=== PATIENT | female | born 1950 | race Caucasian/White ===

== ENCOUNTER 2017-06-22 13:38 | Emergency (ER) | payer BC, OTHER ==
[2017-06-22] MEDS ORDERED: CYCLOBENZAPRINE 10 MG TABLET PO STA (14:19)
[2017-06-22] MEDS ORDERED: LIDOCAINE PATCH 5% TOP STA (14:19)
[2017-06-22] MEDS ORDERED: KETOROLAC 60 MG/2 ML VIAL IM STA (14:19)
--- NOTE | 2017-06-22 14:23 | ED Physician Documentation ---
History of Present Illness - Stated complaint Stated Complaint: NECK/SHOULDER PX - Chief complaint Chief Complaint: General - Additonal information Additional information: hx from pt 66 female worsening left sided neck and posterior shoulder pain for several days not better with NSAID and OTC slovak med no trauma no CP SOA fever cough abd pain hurts to move Review of Systems Constitutional: denies: Fever Cardiac: denies: Chest pain / pressure Respiratory: denies: Dyspnea, Cough GI: denies: Abdominal Pain, Nausea, Vomiting Musculoskeletal: reports: Neck pain, Extremity pain Endocrine: denies: Easy bruising / bleeding Immunocompromised: denies: Immunocompromised PD PAST MEDICAL HISTORY - Past Medical History Cardiovascular: Hypertension Respiratory: Sleep apnea Endocrine/Autoimmune: HyPOthyroidism GI: GERD, Hemorrhoids : None HEENT: None Psych: None Musculoskeletal: Osteoarthritis Derm: None - Past Surgical History Past Surgical History: Yes General: Colonoscopy 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: 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 - Present Medications Home Medications: Ambulatory Orders Medication Instructions Recorded Confirmed Levothyroxine [Synthroid] 20 mcg PO DAILY 01/25/13 06/22/17 Telmisartan [Micardis] 40 mg PO DAILY 01/25/13 06/22/17 EPINEPHrine [Epipen] 0.3 mg IM ONCE #1 syringe 10/31/14 06/22/17 Cyclobenzaprine [Flexeril] 10 mg PO TID PRN #20 tablet 06/22/17 Ibuprofen [Motrin] 400 mg PO Q6H PRN #30 tablet 06/22/17 Lidocaine Patch 5% [Lidoderm Patch] 1 each TOP DAILY PRN #10 patch 06/22/17 - Allergies Allergies/Adverse Reactions: Allergies Allergy/AdvReac Type Severity Reaction Status Date / Time codeine [Codeine] Allergy Severe unknown Verified 06/22/17 13:53 iodine Allergy Severe unknown Verified 06/22/17 13:53 - Social History Does the pt smoke?: No Smoking Status: Never smoker Does the pt drink ETOH?: No Does the pt have substance abuse?: No - Immunizations Immunizations are current?: Yes - POLST Patient has POLST: No PD ED PE NORMAL - Vitals Vital signs reviewed: Yes - General General: Alert and oriented X 3 - Neck Neck: No bony TTP (no focal bony TTP redness and swelling), Other (left sided soft tissue TTP) - Cardiac Cardiac: RRR - Respiratory Respiratory: No respiratory distress, Clear bilaterally - Abdomen Abdomen: Soft, Non tender - Derm Derm: Normal color - Extremities Extremities: Other (TTP across L trap and deltoid region, no swelling redness warmth etc, limited sholder ROM yandel ABD 2/2 pain, MSV intact) - Neuro Neuro: Alert and oriented X 3, No motor deficit, No sensory deficit Results - Vitals Vitals: Vital Signs - 24 hr 06/22/17 06/22/17 13:51 15:08 Temperature 36.6 C Heart Rate 75 61 Respiratory 18 14 Rate Blood Pressure 137/78 H 131/76 H O2 Saturation 99 97 Oxygen O2 Source Room air - EKG (time done) 1405 Rate: Rate (enter#) (64) Rhythm: NSR [place]: LAD Intervals: Normal [place] QRS: Normal Ischemia: Non specific changes PD MEDICAL DECISION MAKING - ED course ED course: pain seems clearly muscular better with lido paytch motrin flexeril Departure - Departure Disposition: 01 Home, Self Care Clinical Impression: Muscle spasm of back, Neck muscle spasm Condition: Good Instructions: ED Spasm Neck No Injury Follow-Up: Savannah Carter PA-C [Primary Care Provider] - Prescriptions: Cyclobenzaprine [Flexeril] 10 mg PO TID PRN #20 tablet PRN Reason: Spasms Ibuprofen [Motrin] 400 mg PO Q6H PRN #30 tablet PRN Reason: Pain Lidocaine Patch 5% [Lidoderm Patch] 1 each TOP DAILY PRN #10 patch PRN Reason: Pain Comments: Heat and ice will help too Forms: Activity restrictions
[2017-06-22] MEDS ORDERED: KETOROLAC 60 MG/2 ML VIAL ONE (14:29)
[2017-06-22] MEDS ORDERED: LIDOCAINE PATCH 5% TOP ONE (14:29)
[2017-06-22] MEDS ORDERED: CYCLOBENZAPRINE 10 MG TABLET PO ONE (14:29)
[2017-06-22 15:09] VITALS: BP 131/76
== END 2017-06-22 16:22 | disposition home or self-care (01) ==
LOC: ED 13:38
DX: M62.830 Muscle spasm of back (principal); M62.838 Other muscle spasm; I10 Essential (primary) hypertension; E03.9 Hypothyroidism, unspecified
CPT/HCPCS: 93005; 96372; 99283; A9270

== ENCOUNTER 2017-06-23 16:42 | Outpatient (CLI) | payer BC ==
--- NOTE | 2017-06-24 11:08 | XRAY Report ---
CERVICAL SPINE: 06/23/2017 COMPARISON: Cervical spine CT 01/25/2013. INDICATION: Arthritis. TECHNIQUE: Three views of the cervical spine. FINDINGS: No disk space narrowing. No vertebral body osteophytes. There are multilevel osteophytes of the facets. No evidence of acute fracture. No prevertebral soft tissue swelling. The lateral masses appear symmetric. IMPRESSION: [id number] FACET ARTHROSIS. JOB #: [id number] EXT JOB #: [id number] [facility]
== END 2017-06-23 16:43 | disposition home or self-care (01) ==
LOC: DI 16:42
PROVIDERS: ATTEND Family Medicine
DX: M47.892 Other spondylosis, cervical region (principal)
CPT/HCPCS: 72040

== ENCOUNTER 2017-08-11 06:09 | Outpatient (CLI) | payer BC ==
[2017-08-11 06:52] LABS: BASOPHILS % (AUTO) 0.5 %; EOSINOPHILS # (AUTO) 0.2 10^3/uL (0.0-0.7); EOSINOPHILS % (AUTO) 4.1 %; HGB - HEMOGLOBIN 13.5 g/dL (12.0-16.0); LYMPHOCYTES # (AUTO) 1.7 10^3/uL (1.5-3.5); LYMPHOCYTES % (AUTO) 33.2 %; MEAN CORPUSCULAR HEMOGLOBIN 30.9 pg (27.0-31.0); MEAN CORPUSCULAR HGB CONC 33.6 g/dL (32.0-36.0); MEAN PLATELET VOLUME 8.3 fL (7.9-10.8); MONOCYTES # (AUTO) 0.5 10^3/uL (0.0-1.0); MONOCYTES % (AUTO) 9.4 %; NEUTROPHILS # (AUTO) 2.7 10^3/uL (1.5-6.6); NEUTROPHILS % (AUTO) 52.8 %; PLT - PLATELET COUNT 286 10^3/uL (130-450); RED BLOOD COUNT 4.37 10^6/uL (4.20-5.40); RED CELL DISTRIBUTION WIDTH 13.7 % (12.0-15.0); WHITE BLOOD COUNT 5.1 x10^3/uL (4.8-10.8)
[2017-08-11 07:16] LABS: ALBUMIN 3.9 g/dL (3.2-5.5); ALBUMIN/GLOBULIN RATIO 1.3 (1.0-2.2); ALKALINE PHOSPHATASE 76 IU/L (42-121); ALT ALANINE AMINOTRANSFERASE 48 IU/L (10-60); AST ASPARTATE AMINOTRANSFERASE 29 IU/L (10-42); BILIRUBIN,TOTAL 0.6 mg/dL (0.2-1.0); BUN - BLOOD UREA NITROGEN 22 mg/dL (6-20); CALCIUM 9.5 mg/dL (8.5-10.3); CARBON DIOXIDE - CO2 26 mmol/L (21-32); CHLORIDE 107 mmol/L (101-111); CHOL/HDL RATIO 3.9 (<4.4); CHOLESTEROL 240 mg/dL; CREATININE 0.8 mg/dL (0.4-1.0); GFR - MDRD 72 (>89); GLUCOSE 129 mg/dL (70-100); HDL CHOLESTEROL 62 mg/dL; LDL CHOLESTEROL,CALCULATED 156 mg/dL; LDL/HDL RATIO 2.5 (<4.4); SODIUM 141 mmol/L (135-145); TOTAL PROTEIN 6.8 g/dL (6.7-8.2); VLDL CHOLESTEROL 22 mg/dL
== END 2017-08-11 06:10 | disposition home or self-care (01) ==
LOC: LAB 06:09
PROVIDERS: ATTEND Physician Assistant Medical
DX: Z00.00 Encounter for general adult medical examination without abnormal findings (principal)
CPT/HCPCS: 36415; 80053; 80061; 83721; 84443; 85025

== ENCOUNTER 2017-09-10 08:00 | Outpatient (CLI) | payer BC ==
--- NOTE | 2017-09-10 15:17 | MRI Report ---
MRI CERVICAL SPINE WITHOUT CONTRAST INDICATION: 67-year-old female with complaints of neck pain and decreased range of motion. Also compl ains of pain, numbness and tingling in left arm. Please assess. TECHNIQUE: 1. Sagittal STIR, T1 and T2. 2. Axial T1, T2 and T2* COMPARISON: Cervical spine CT 09/10/2017 FINDINGS: The coronal localizer suggests a minor, dextroconvex cervical spine scoliosis. In the sagittal plane alignment is essentially normal. Degenerative changes are seen in the disks at all levels. Axial Images: C2-C3: No disk herniation or spinal stenosis. Minor left-sided degenerative facet arthrosis with mini mal bony hypertrophy. No foraminal encroachment. C3-C4: No disk herniation or spinal stenosis. Left-sided degenerative facet arthrosis with associated bony hypertrophy gives rise to minimal left foraminal narrowing. C4-C5: Tiny posterior spondylotic bar with minimal mass effect on the thecal sac. No spinal stenosis. Left-sided uncovertebral and facet hypertrophy gives rise to mild to moderate left foraminal stenosi s. Uncovertebral hypertrophy gives rise to mild right foraminal narrowing. C5-C6: Tiny posterior spondylotic bar with minimal mass effect on the thecal sac. No spinal stenosis. Minimal uncovertebral hypertrophy. No foraminal encroachment. C6-C7: Small extrusion, largest, paracentrally to the right where it projects posteriorly into the sp inal canal for about 3 mm. Mass effect on the ventral aspect of the thecal sac with effacement of the CSF ventral to the right side of the cord. There is CSF space dorsal to the cord without high-grade spinal stenosis. No apparent flattening or deformity of the cord to suggest impingement. No significa nt foraminal narrowing. C7-T1: No disk herniation. No spinal canal or foraminal stenosis. Imaged only in the sagittal plane are tiny posterior disk herniations at T1-T2 and T2-T3. No associat ed spinal stenosis. The spinal cord has a normal signal intensity throughout. IMPRESSION: 1. Multilevel degenerative disk disease with small disk herniations or spondylotic bars at several le vels as described. No significant appearing spinal stenosis. No evidence of cord impingement. 2. There is multilevel bony foraminal narrowing as described. However, no high-grade foraminal stenos is is demonstrated, and there is no obvious impingement of any exiting cervical nerve roots. Referring Provider Line: [phone] SITE ID: [id number]
== END 2017-09-10 08:01 | disposition home or self-care (01) ==
LOC: DI 08:00
PROVIDERS: ATTEND Physician Assistant Medical
DX: M50.223 Other cervical disc displacement at C6-C7 level (principal); M47.892 Other spondylosis, cervical region; M50.31 Other cervical disc degeneration, high cervical region; M51.24 Other intervertebral disc displacement, thoracic region
CPT/HCPCS: 72141

== ENCOUNTER 2017-09-10 11:35 | Outpatient (CLI) | payer BC | END 2017-09-10 11:36 | disposition critical access hospital (66) | LOC: EMS 11:35 | PROVIDERS: ATTEND Surgery | DX: M25.561 Pain in right knee (principal); M54.9 Dorsalgia, unspecified; M54.2 Cervicalgia; W01.0XXA Fall on same level from slipping, tripping and stumbling without subsequent striking against object, initial encounter; Y93.01 Activity, walking, marching and hiking; Y92.480 Sidewalk as the place of occurrence of the external cause | CPT/HCPCS: A0425; A0429 ==

== ENCOUNTER 2017-09-10 11:40 | Emergency (ER) | payer BC ==
--- NOTE | 2017-09-10 11:51 | ED Physician Documentation ---
PD HPI Fall - Stated complaint Stated Complaint: GLF - Chief complaint Chief Complaint: Trauma Hd/Nk - History obtained from History obtained from: Patient - History of Present Illness Mechanism of injury: Slipped (falling forward to hands and knees, struck forehead with neck whipped back. Also pain in low back. bystanders told her to stay lying and EMS was called. 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 No: Chest , Abdomen Quality of pain: Pain, Throbbing, Aching Associated symptoms: No: LOC, AMS, Weakness, Paresthesias, Nausea / vomiting Worsens with: Movement, Palpation Similar symptoms before: Has not had sx before Recently seen: Not recently seen Review of Systems Constitutional: denies: Fever, Chills Nose: denies: Rhinorrhea / runny nose, Congestion Throat: denies: Sore throat Cardiac: denies: Chest pain / pressure, Palpitations Respiratory: denies: Dyspnea, Cough, Wheezing GI: reports: Nausea. 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 - Present Medications Home Medications: Ambulatory Orders Medication Instructions Recorded Confirmed Levothyroxine [Synthroid] 20 mcg PO DAILY 01/25/13 06/22/17 Telmisartan [Micardis] 40 mg PO DAILY 01/25/13 06/22/17 EPINEPHrine [Epipen] 0.3 mg IM ONCE #1 syringe 10/31/14 06/22/17 Ibuprofen [Motrin] 400 mg PO Q6H PRN #30 tablet 06/22/17 Methocarbamol [Robaxin] 500 mg PO Q6H PRN #25 tablet 09/10/17 Naproxen [Naprosyn] 500 mg PO BID PRN #20 tablet 09/10/17 Tramadol HCl 50 mg PO Q6H PRN #20 tablet 09/10/17 - Allergies Allergies/Adverse Reactions: Allergies Allergy/AdvReac Type Severity Reaction Status Date / Time codeine [Codeine] Allergy Severe unknown Verified 06/22/17 13:53 iodine Allergy Severe unknown Verified 06/22/17 13:53 - Social History Does the pt smoke?: No Smoking Status: Never smoker Does the pt drink ETOH?: No Does the pt have substance abuse?: No - Immunizations Immunizations are current?: Yes - POLST Patient has POLST: No PD ED PE NORMAL - Vitals Vital signs reviewed: Yes - General General: Alert and oriented X 3, No acute distress, Well developed/nourished - HEENT HEENT: Atraumatic, Ears normal, Moist mucous membranes, Pharynx benign - Neck Neck: Supple, no meningeal sign, No adenopathy, Other (tender mid cervical area without deformity. Front of head with mild tenderness at forehead. Having some low back tenderness in muscles to both sides. Also some tenderness in SI and scaral areas. ) - Cardiac Cardiac: RRR, No murmur - Respiratory Respiratory: Clear bilaterally - Abdomen Abdomen: Soft, Non tender - Back Back: No CVA TTP, No spinal TTP - Derm Derm: Normal color, Warm and dry - Extremities Extremities: Other (right knee with some tenderness anteriorly. No effusion. She can extend though hurts for the exension. Ligament testing without obvious pain/laxity. ) Results - Vitals Vitals: Oxygen O2 Source Room air - Rads (name of study) right knee Radiology: Prelim report reviewed (no fracture) head and neck CT Radiology: Prelim report reviewed (no acute findings) lumbar and sacral CT Radiology: Prelim report reviewed (no fractures noted. ) PD MEDICAL DECISION MAKING - ED course Complexity details: reviewed results (she was having pain diffusely so ended up with a lot of imaging. No obvious acute fractures/organ injuries noted. ), considered differential, d/w patient Departure - Departure Disposition: 01 Home, Self Care Clinical Impression: Fall from slip, trip, or stumble Qualifiers: Encounter type: initial encounter Qualified Code(s): W01.0XXA - Fall on same level from slipping, tripping and stumbling without subsequent striking against object, initial encounter Knee contusion Qualifiers: Encounter type: initial encounter Laterality: right Qualified Code(s): S80.01XA - Contusion of right knee, initial encounter Low back strain Qualifiers: Encounter type: initial encounter Qualified Code(s): S39.012A - Strain of muscle, fascia and tendon of lower back, initial encounter Neck strain Qualifiers: Encounter type: initial encounter Qualified Code(s): S16.1XXA - Strain of muscle, fascia and tendon at neck level, initial encounter Contusion of head Qualifiers: Encounter type: initial encounter Contusion of head detail: scalp Qualified Code(s): S00.03XA - Contusion of scalp, initial encounter Condition: Stable Record reviewed to determine appropriate education?: Yes Instructions: ED Sprain Strain Lumbar, ED Contusion Lower Ext, ED Sprain Strain Neck Follow-Up: Savannah Carter PA-C [Primary Care Provider] - Prescriptions: Methocarbamol [Robaxin] 500 mg PO Q6H PRN #25 tablet PRN Reason: Spasms Naproxen [Naprosyn] 500 mg PO BID PRN #20 tablet PRN Reason: Pain Tramadol HCl 50 mg PO Q6H PRN #20 tablet PRN Reason: Pain Comments: Ice or cool towels to areas that feels swollen such as the knee. The neck and low back may actually feel better with heat if it is more spasming or strain. You can do ibuprofen or Aleve to 3 times a day and add Tylenol if needed. If you did feel you needed little stronger medicine he can add Robaxin muscle relaxant for stiffness and spasms and tramadol if needed for pain. Likely be sore for several days to week or so. This should gradually improve. The MRI of your neck from this morning did not have a report out yet. Discharge Date/Time: 09/10/17 15:35
[2017-09-10] MEDS ORDERED: HYDROmorphone 1 MG/ML SYRINGE IM STA (12:21)
[2017-09-10] MEDS ORDERED: KETOROLAC 60 MG/2 ML VIAL IM STA (12:21)
--- NOTE | 2017-09-10 14:05 | CT Report ---
EXAM: CT HEAD EXAM DATE: 09/10/2017 01:01 PM. CLINICAL HISTORY: Fell forward and struck head. Head and neck pain. COMPARISON: 01/25/2013. TECHNIQUE: Multiaxial CT images were obtained from the foramen magnum to the vertex. Reformats: Coron al. IV contrast: None. In accordance with CT protocol optimization, one or more of the following dose reduction techniques w ere utilized for this exam: automated exposure control, adjustment of mA and/or KV based on patient s ize, or use of iterative reconstructive technique. FINDINGS: Parenchyma: No intraparenchymal hemorrhage. No evidence of mass, midline shift, or CT findings of inf arction. Beltran-white differentiation is distinct. Periventricular regions of low attenuation are again seen. Extraaxial Spaces: Normal for age. No subdural or epidural collections identified. Ventricles: Normal in size and position. Sinuses and Orbits: Severe left maxillary sinus disease with calcified inspissated mucus. Remainder o f the paranasal sinuses and mastoid air cells are clear. Bones: No evidence of fracture or calvarial defect. Other: Globes and orbits are unremarkable. Vascular calcifications are noted. IMPRESSION: 1. No acute intracranial abnormality is identified. 2. No acute fracture. 3. Severe left maxillary sinus disease. [facility] Referring Provider Line: [phone] SITE ID: [id number]
--- NOTE | 2017-09-10 14:08 | CT Report ---
EXAM: CT CERVICAL SPINE WITHOUT CONTRAST DATE: 09/10/2017 01:05 PM. HISTORY: Fell forward, struck head; neck pain. COMPARISONS: MR cervical spine 09/10/2017 at 8:41 AM TECHNIQUE: Thin-section axial images were acquired of the cervical spine without contrast. Post-proce ssing: Coronal and sagittal reformats. Other: None. In accordance with CT protocol optimization, one or more of the following dose reduction techniques w ere utilized for this exam: automated exposure control, adjustment of mA and/or KV based on patient s ize, or use of iterative reconstructive technique. FINDINGS: Alignment: No scoliosis or spondylolisthesis. Bones: No fracture or bone lesion. Interspace Levels/Facets: C1-C2: Unremarkable. C2-C3: No significant central canal or foraminal narrowing. C3-C4: Moderate to severe left facet arthropathy. Mild right facet arthropathy. Mild left foraminal n arrowing. No right foraminal narrowing. No significant central canal narrowing. C4-C5: Severe left facet arthropathy. [id number] left foraminal narrowing. No right foraminal n arrowing. No central canal narrowing. C5-C6: Moderate right facet arthropathy. Mild right foraminal narrowing. No left foraminal narrowing. No central canal narrowing. C6-C7: No significant central canal or foraminal narrowing. C7-T1: No significant central canal or foraminal narrowing. Musculature: Normal. No fatty atrophy. Other: The paravertebral and prevertebral soft tissues are unremarkable. The lung apices are clear. IMPRESSION: 1. No CT evidence of acute fracture or malalignment. No prevertebral soft tissue swelling. 2. Multilevel degenerative spondylosis, as detailed above. [facility] Referring Provider Line: [phone] SITE ID: [id number]
--- NOTE | 2017-09-10 14:08 | XRAY Report ---
EXAM: RIGHT KNEE RADIOGRAPHY EXAM DATE: 09/10/2017 01:48 PM. CLINICAL HISTORY: Right knee pain after fall one day. Fell forward. COMPARISON: 06/02/2008. TECHNIQUE: 4 views. FINDINGS: Bones: No acute fracture or bony lesion. Degenerative spurring are patellar enthesophytes. Joints: Small right knee effusion. Narrowing of the medial and patellofemoral compartment of the righ t knee. No dislocation. Soft Tissues: Soft tissue edema. No radiopaque foreign bodies. IMPRESSION: 1. No acute osseous abnormalities. 2. Small right knee effusion. 3. Degenerative changes of the right knee. [facility] Referring Provider Line: [phone] SITE ID: [id number]
--- NOTE | 2017-09-10 14:14 | CT Report ---
EXAM: CT BONY PELVIS WITHOUT CONTRAST EXAM DATE: 09/10/2017 01:40 PM. CLINICAL HISTORY: Fell forward with low back/pelvic pain. Left side pelvic pain. COMPARISON: 01/25/2013. TECHNIQUE: Thin-section axial images were acquired of the pelvis without contrast. Post-processing: C oronal and sagittal reformats. Other: None. In accordance with CT protocol optimization, one or more of the following dose reduction techniques w ere utilized for this exam: automated exposure control, adjustment of mA and/or KV based on patient s ize, or use of iterative reconstructive technique. FINDINGS: Bones: No acute fracture or bony lesion. Sacroiliac Joints: Mild degenerative changes. Normal alignment. Symphysis Pubis: Mild degenerative changes. Normal alignment. Right Hip: Mild joint space narrowing and osteophyte formation. Subchondral cystic change. Left Hip: Mild joint space narrowing and osteophyte formation. Musculature: Normal. No fatty atrophy. Pelvic Cavity: Parauterine calcifications are seen. No adnexal masses. Small midline ventral hernia c ontaining fat between the lower rectus abdominis musculature. The urinary bladder is unremarkable. No pelvic adenopathy. No pelvic free fluid. Other: Included portions of the small bowel are unremarkable. Several diverticula are seen in the vis ualized colon. No diverticulitis. Small bilateral volume of seen in the colon. Appendix is normal. Abdominal aortic atherosclerotic calcified plaque as well as iliac artery calcified plaque is identif ied. No inguinal adenopathy. Degenerative changes of lower lumbar spine. Lumbar facet arthropathy. IMPRESSION: 1. No acute osseous abnormalities. Normal alignment. 2. Degenerative changes of the lower lumbar spine and both hip joints. 3. Normal appendix. 4. Ventral midline anterior pelvic fatty hernia. [facility] Referring Provider Line: [phone] SITE ID: [id number]
--- NOTE | 2017-09-10 14:15 | CT Report ---
EXAM: CT LUMBAR SPINE WITHOUT CONTRAST EXAM DATE: 09/10/2017 01:40 PM. CLINICAL HISTORY: Fell forward, pain in low back. COMPARISONS: Radiograph lumbar spine 01/25/2013 TECHNIQUE: Thin-section axial images were acquired of the lumbar spine from T12 to S1 without contras t. Post-processing: Coronal and sagittal reformats. Other: None. In accordance with CT protocol optimization, one or more of the following dose reduction techniques w ere utilized for this exam: automated exposure control, adjustment of mA and/or KV based on patient s ize, or use of iterative reconstructive technique. FINDINGS: Alignment: No scoliosis or spondylolisthesis. Bones: Five [id number] lumbar vertebral bodies are present. No fractures or bone lesions. Disk Levels/Facets: T12-L1: Unremarkable. L1-L2: Unremarkable. L2-L3: Unremarkable. L3-L4: Minimal diffuse disposed. Minimal bilateral facet arthropathy. No significant central canal or foraminal narrowing. L4-L5: Mild disk height loss. Mild diffuse disk bulge. Kuxq-cu-[id number] bilateral facet arthropathy. No significant central canal or foraminal narrowing. Mild disk height loss. Mild bilateral facet arthropathy. Mild diffuse disk bulge. No significant cent ral canal foraminal narrowing. Unremarkable. Musculature: Normal. No fatty atrophy. Other: Moderate atherosclerosis visualized aorta and its major branches. There is a left adrenal mass with intralesional fat and calcifications measuring approximately 3.3 x 4.3 cm (series 3 image 25). The visualized retroperitoneum is otherwise unremarkable. IMPRESSION: 1. There is a left adrenal mass with intralesional fat and calcifications measuring approximately 3.3 x 4.3 cm (series 3 image 25). This lesion is nonspecific and incompletely evaluated on this study. F urther evaluation with adrenal mass protocol CT or MR is recommended, this evaluation may be done on a nonemergent basis. 2. No evidence of acute fracture or malalignment. 3. Mild degenerative spondylosis, as detailed above. [facility] Referring Provider Line: [phone] SITE ID: [id number]
[2017-09-10 15:50] VITALS: BP 112/80
== END 2017-09-10 15:35 | disposition home or self-care (01) ==
LOC: EDUNIT# → ED 11:40
DX: S16.1XXA Strain of muscle, fascia and tendon at neck level, initial encounter (principal); S39.012A Strain of muscle, fascia and tendon of lower back, initial encounter; S00.03XA Contusion of scalp, initial encounter; S80.01XA Contusion of right knee, initial encounter; W01.0XXA Fall on same level from slipping, tripping and stumbling without subsequent striking against object, initial encounter; Y92.410 Unspecified street and highway as the place of occurrence of the external cause; I10 Essential (primary) hypertension; M50.223 Other cervical disc displacement at C6-C7 level; M47.892 Other spondylosis, cervical region; M50.31 Other cervical disc degeneration, high cervical region; M51.24 Other intervertebral disc displacement, thoracic region
CPT/HCPCS: 70450; 72125; 72131; 72141; 72192; 73564; 96372; 99283; J1170

== ENCOUNTER 2017-11-07 16:59 | Emergency (ER) | payer BC ==
[2017-11-07] MEDS ORDERED: EPINEPHrine 1 MG/ML AMP IM STA (17:15)
[2017-11-07] MEDS ORDERED: diphenhydrAMINE INJ 50 MG/ML VIAL IVP STA (17:15)
[2017-11-07] MEDS ORDERED: SODIUM CHLORIDE 0.9% 1,000 ML IV ONE (17:15)
[2017-11-07] MEDS ORDERED: methylPREDNISolone SUCCINATE 125 MG/2 ML VIAL IVP STA (17:15)
--- NOTE | 2017-11-07 17:18 | ED Physician Documentation ---
History of Present Illness - Stated complaint Stated Complaint: SOA/HORNET STING - Chief complaint Chief Complaint: Allergic Rx - History obtained from History obtained from: Patient - History of Present Illness Timing: Today (at 4pm she was stung on R forearm by wasp and with throat swelling, diffuse itching. 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 - Present Medications Home Medications: Ambulatory Orders Medication Instructions Recorded Confirmed Levothyroxine [Synthroid] 20 mcg PO DAILY 01/25/13 06/22/17 Telmisartan [Micardis] 40 mg PO DAILY 01/25/13 06/22/17 EPINEPHrine [Epipen] 0.3 mg IM ONCE #1 syringe 10/31/14 06/22/17 Naproxen [Naprosyn] 500 mg PO BID PRN #20 tablet 09/10/17 predniSONE [Deltasone] 60 mg PO DAILY 5 Days tablet 11/07/17 - Allergies Allergies/Adverse Reactions: Allergies Allergy/AdvReac Type Severity Reaction Status Date / Time codeine [Codeine] Allergy Severe unknown Verified 06/22/17 13:53 iodine Allergy Severe unknown Verified 06/22/17 13:53 hornet venom Allergy Respiratory Verified 11/07/17 17:08 - Social History Does the pt smoke?: No Smoking Status: Never smoker Does the pt drink ETOH?: No Does the pt have substance abuse?: No - Immunizations Immunizations are current?: Yes - POLST Patient has POLST: No PD ED PE NORMAL - Vitals Vital signs reviewed: Yes - General General: Alert and oriented X 3, No acute distress - HEENT HEENT: Other (op in nl, no angioedema ) - Neck Neck: Supple, no meningeal sign, No bony TTP - Cardiac Cardiac: RRR, No murmur - Respiratory Respiratory: Other (rhonchorous and wheezy) - Abdomen Abdomen: Soft, Non tender - Back Back: No CVA TTP, No spinal TTP - Derm Derm: Normal color, Warm and dry - Extremities Extremities: No edema, No calf tenderness / cord - Neuro Neuro: Alert and oriented X 3, Normal speech - Psych Psych: Normal mood, Normal affect Results - Vitals Vitals: Vital Signs - 24 hr 11/07/17 11/07/17 11/07/17 17:04 18:26 19:09 Temperature 36.7 C Heart Rate 72 68 69 Respiratory 20 17 19 Rate Blood Pressure 141/86 H 141/86 H 124/68 O2 Saturation 98 94 96 11/07/17 11/07/17 11/07/17 19:40 20:11 20:33 Temperature Heart Rate 79 85 87 Respiratory 22 19 14 Rate Blood Pressure 137/60 H 146/67 H 145/58 H O2 Saturation 94 95 96 Oxygen O2 Source Room air PD MEDICAL DECISION MAKING - ED course Complexity details: reviewed old records, re-evaluated patient ED course: 67-year-old woman presents with anaphylaxis which seems mild, nothing much objective after a wasp sting which she is known to be allergic to. She was administered IM epinephrine as well as IV fluids, Solu-Medrol, and Benadryl. She was observed for a prolonged period of time without recurrence of her symptoms, and her symptoms did go away. She was counseled on the appropriate use of her EpiPen, she has 1. Departure - Departure Disposition: 01 Home, Self Care Clinical Impression: Anaphylactic reaction Qualifiers: Encounter type: initial encounter Qualified Code(s): T78.2XXA - Anaphylactic shock, unspecified, initial encounter Condition: Good Record reviewed to determine appropriate education?: Yes Instructions: ED Bite Sting Insect Gen Allergic React Prescriptions: predniSONE [Deltasone] 60 mg PO DAILY 5 Days tablet Comments: Next time you gets stung by a bee or wasp refinance, make sure you take your own EpiPen if you have any symptoms other than localized pain. This would include generalized itching, throat swelling, shortness of breath. He will need to come to the emergency department for any the symptoms even if you use her EpiPen. Return if worsening.
[2017-11-07] MEDS ORDERED: EPINEPHrine 1 MG/ML AMP ONE (17:23)
[2017-11-07] MEDS ORDERED: ACETAMINOPHEN 325 MG TABLET PO STA (17:56)
[2017-11-07 20:34] VITALS: BP 145/58
== END 2017-11-07 20:47 | disposition home or self-care (01) ==
LOC: ED 16:59
DX: T63.451A Toxic effect of venom of hornets, accidental (unintentional), initial encounter (principal); I10 Essential (primary) hypertension; E03.9 Hypothyroidism, unspecified
CPT/HCPCS: 96361; 96372; 96374; 96375; 99283; 99284; A9270; J1200

== ENCOUNTER 2017-11-10 06:02 | Outpatient (CLI) | payer BC ==
[2017-11-10] MEDS ORDERED: IOPAMIDOL-300 100 ML VIAL ONE (06:18)
[2017-11-10 06:35] LABS: HB2 TOTAL 14.3 g/dL; HEMOGLOBIN A1C 0.71 g/dL; HEMOGLOBIN A1C % 6.7 % (4.6-6.2)
[2017-11-10 06:36] LABS: ALBUMIN 3.8 g/dL (3.2-5.5); ALBUMIN/GLOBULIN RATIO 1.4 (1.0-2.2); ALKALINE PHOSPHATASE 79 IU/L (42-121); ALT ALANINE AMINOTRANSFERASE 53 IU/L (10-60); AST ASPARTATE AMINOTRANSFERASE 27 IU/L (10-42); BILIRUBIN,TOTAL 0.6 mg/dL (0.2-1.0); BUN - BLOOD UREA NITROGEN 18 mg/dL (6-20); CALCIUM 8.7 mg/dL (8.5-10.3); CARBON DIOXIDE - CO2 25 mmol/L (21-32); CHLORIDE 108 mmol/L (101-111); CHOL/HDL RATIO 3.9 (<4.4); CHOLESTEROL 223 mg/dL; CREATININE 0.7 mg/dL (0.4-1.0); GFR - MDRD 83 (>89); GLUCOSE 120 mg/dL (70-100); HDL CHOLESTEROL 57 mg/dL; LDL CHOLESTEROL,CALCULATED 135 mg/dL; LDL/HDL RATIO 2.4 (<4.4); SODIUM 139 mmol/L (135-145); TOTAL PROTEIN 6.6 g/dL (6.7-8.2); VLDL CHOLESTEROL 31 mg/dL
[2017-11-10] MEDS ORDERED: GADOBUTROL 15 MMOL/15 ML VIAL ONE ×2 (12:45→16:15)
[2017-11-10] MEDS ORDERED: GADOBUTROL 15 MMOL/15 ML VIAL IVP ONE (17:58)
--- NOTE | 2017-11-12 08:20 | MRI Report ---
EXAM: MR ABDOMEN WITH AND WITHOUT CONTRAST (MR ADRENAL) EXAM DATE: 11/10/2017 05:54 PM. CLINICAL HISTORY: LET ADRENAL MASS. COMPARISON: None. TECHNIQUE: Multiplanar breath-hold T1, T2, and DWI sequences obtained through the abdomen on an [facility] with dedicated adrenal protocol. Images obtained before and after administration of [address] intravenous contrast. Multiphase postcontrast images obtained of the liver and abdomen. FINDINGS: Lung Bases: Unremarkable. Liver: Diffuse fatty liver infiltration. No mass evident on adrenal protocol. Gallbladder: Partially contracted gallbladder. No stone or wall thickening evident. Pancreas: The pancreas appears normal with no mass or ductal dilatation. Spleen: The spleen appears normal. Kidneys: No hydronephrosis. No renal mass evident on adrenal protocol. Small bilateral renal cysts. T he adrenals appear normal. Adrenals: 3.4 x 3.2 cm left adrenal adenoma with significant decreased signal on cse-no-vmxzj series. Adrenal to spleen CSI ratio 0.47 with 55% adrenal signal intensity index. Normal right adrenal gland. Bowel: The small bowel and colon appear normal with no inflammation or obstruction. Retroperitoneum: The retroperitoneal structures appear normal with no mass or lymphadenopathy. IMPRESSION: 1. A 3.4 cm left adrenal adenoma. 2. Fatty liver. [facility] Referring Provider Line: [phone] SITE ID: [id number]
== END 2017-11-10 06:03 | disposition home or self-care (01) ==
LOC: LAB 06:02 → DI 06:03
PROVIDERS: ATTEND Physician Assistant Medical
DX: Z00.00 Encounter for general adult medical examination without abnormal findings (principal); D35.02 Benign neoplasm of left adrenal gland; K76.0 Fatty (change of) liver, not elsewhere classified; R73.09 Other abnormal glucose
CPT/HCPCS: 36415; 74183; 80053; 80061; 83036; A9585; 83721

== ENCOUNTER 2018-09-29 08:00 | Outpatient (CLI) | payer BC ==
[2018-09-29 13:25] LABS: ALBUMIN 3.8 g/dL (3.2-5.5); ALBUMIN/GLOBULIN RATIO 1.3 (1.0-2.2); ALKALINE PHOSPHATASE 72 IU/L (42-121); ALT ALANINE AMINOTRANSFERASE 52 IU/L (10-60); AST ASPARTATE AMINOTRANSFERASE 41 IU/L (10-42); BILIRUBIN,TOTAL 1.1 mg/dL (0.2-1.0); BUN - BLOOD UREA NITROGEN 15 mg/dL (6-20); CHOL/HDL RATIO 2.9 (<4.4); CHOLESTEROL 185 mg/dL; CREATININE 0.7 mg/dL (0.4-1.0); GFR - MDRD 83 (>89); HDL CHOLESTEROL 64 mg/dL; LDL CHOLESTEROL,CALCULATED 95 mg/dL; LDL/HDL RATIO 1.5 (<4.4); TOTAL PROTEIN 6.7 g/dL (6.7-8.2); VLDL CHOLESTEROL 26 mg/dL
[2018-09-29 13:42] LABS: CALCIUM 9.2 mg/dL (8.5-10.3); CARBON DIOXIDE - CO2 25 mmol/L (21-32); CHLORIDE 109 mmol/L (101-111); GLUCOSE 132 mg/dL (70-100); SODIUM 142 mmol/L (135-145)
[2018-09-29 14:55] LABS: HB2 TOTAL 15.2 g/dL; HEMOGLOBIN A1C 0.75 g/dL; HEMOGLOBIN A1C % 6.7 % (4.6-6.2)
== END 2018-09-29 23:59 | disposition home or self-care (01) ==
LOC: LAB.WCP 08:00
PROVIDERS: ATTEND Physician Assistant Medical
DX: R73.09 Other abnormal glucose (principal)
CPT/HCPCS: 36415; 80053; 80061; 83036; 83721

== ENCOUNTER 2019-06-04 07:10 | Outpatient (CLI) | payer BC ==
[2019-06-04 12:34] LABS: HB2 TOTAL 14.3 g/dL; HEMOGLOBIN A1C 0.67 g/dL; HEMOGLOBIN A1C % 6.4 % (4.6-6.2)
[2019-06-04 12:59] LABS: BASOPHILS % (AUTO) 0.3 %; EOSINOPHILS # (AUTO) 0.2 10^3/uL (0.0-0.7); EOSINOPHILS % (AUTO) 3.6 %; HGB - HEMOGLOBIN 14.6 g/dL (12.0-16.0); LYMPHOCYTES % (AUTO) 31.1 %; MEAN CORPUSCULAR HEMOGLOBIN 30.2 pg (27.0-31.0); MEAN CORPUSCULAR HGB CONC 31.9 g/dL (32.0-36.0); MEAN CORPUSCULAR VOLUME 94.8 fL (81.0-99.0); MONOCYTES # (AUTO) 0.6 10^3/uL (0.0-1.0); MONOCYTES % (AUTO) 8.8 %; NEUTROPHILS # (AUTO) 3.6 10^3/uL (1.5-6.6); PLT - PLATELET COUNT 299 10^3/uL (130-450); RED BLOOD COUNT 4.83 10^6/uL (4.20-5.40); RED CELL DISTRIBUTION WIDTH 12.9 % (12.0-15.0); WHITE BLOOD COUNT 6.4 x10^3/uL (4.8-10.8)
[2019-06-04 13:22] LABS: ALBUMIN 4.1 g/dL (3.2-5.5); ALBUMIN/GLOBULIN RATIO 1.3 (1.0-2.2); ALKALINE PHOSPHATASE 83 IU/L (42-121); ALT ALANINE AMINOTRANSFERASE 37 IU/L (10-60); AST ASPARTATE AMINOTRANSFERASE 26 IU/L (10-42); BILIRUBIN,TOTAL 0.8 mg/dL (0.2-1.0); BUN - BLOOD UREA NITROGEN 19 mg/dL (6-20); CALCIUM 9.6 mg/dL (8.5-10.3); CARBON DIOXIDE - CO2 24 mmol/L (21-32); CHLORIDE 108 mmol/L (101-111); CHOL/HDL RATIO 5.1 (<4.4); CHOLESTEROL 293 mg/dL; CREATININE 0.9 mg/dL (0.4-1.0); GFR - MDRD 62 (>89); GLUCOSE 126 mg/dL (70-100); HDL CHOLESTEROL 58 mg/dL; LDL CHOLESTEROL,CALCULATED 199 mg/dL; LDL/HDL RATIO 3.4 (<4.4); SODIUM 140 mmol/L (135-145); TOTAL PROTEIN 7.2 g/dL (6.7-8.2); VLDL CHOLESTEROL 36 mg/dL
== END 2019-06-04 23:59 | disposition home or self-care (01) ==
LOC: LAB.WCP 07:10
PROVIDERS: ATTEND Physician Assistant Medical
DX: Z00.00 Encounter for general adult medical examination without abnormal findings (principal); E11.9 Type 2 diabetes mellitus without complications; E03.9 Hypothyroidism, unspecified; I10 Essential (primary) hypertension
CPT/HCPCS: 36415; 80053; 80061; 83036; 83721; 84443; 85025

== ENCOUNTER 2019-08-03 15:50 | Outpatient (CLI) | payer BC, OTHER ==
--- NOTE | 2019-08-05 04:16 | XRAY Report ---
Reason: ARTHRITIS RIGHT RING FINGER/HAND Procedure Date: 08/03/2019 Accession Number: [id number] / [id number] Procedure: WCP - Finger(s) RT CPT Code: Final Report FULL RESULT: EXAM: RIGHT 4th DIGIT RADIOGRAPHY EXAM DATE: 08/03/2019 03:50 PM. CLINICAL HISTORY: ARTHRITIS RIGHT RING FINGER/HAND. COMPARISON: None. TECHNIQUE: 3 views. FINDINGS: Bones: No fracture evident. No suspicious osseous lesion. Osteophyte formation and periostitis present at distal aspect of fourth proximal phalanx. Joints: There is interphalangeal joint space narrowing which is most prominent at PIP joint of fourth digit. No subluxation or dislocation. Minimal MCP joint space narrowing. Soft Tissues: Soft tissue swelling of proximal fourth digit. IMPRESSION: 1. Interphalangeal joint arthritis, probably osteoarthritis, most prominent at PIP joint of fourth digit. 2. Soft tissue swelling of fourth digit. [facility]
== END 2019-08-03 23:59 | disposition home or self-care (01) ==
LOC: DI.WCP 15:50
PROVIDERS: ATTEND Family Medicine
DX: M19.041 Primary osteoarthritis, right hand (principal)
CPT/HCPCS: 73140

== ENCOUNTER 2019-09-05 08:00 | Outpatient (CLI) | payer OTHER ==
[2019-09-05 12:43] LABS: ALBUMIN 3.9 g/dL (3.2-5.5); ALBUMIN/GLOBULIN RATIO 1.4 (1.0-2.2); ALKALINE PHOSPHATASE 71 IU/L (42-121); ALT ALANINE AMINOTRANSFERASE 49 IU/L (10-60); AST ASPARTATE AMINOTRANSFERASE 32 IU/L (10-42); BILIRUBIN,TOTAL 0.4 mg/dL (0.2-1.0); BUN - BLOOD UREA NITROGEN 17 mg/dL (6-20); CALCIUM 9.2 mg/dL (8.5-10.3); CARBON DIOXIDE - CO2 22 mmol/L (21-32); CHLORIDE 108 mmol/L (101-111); CHOLESTEROL 192 mg/dL; CREATININE 0.7 mg/dL (0.4-1.0); GFR - MDRD 83 (>89); GLUCOSE 134 mg/dL (70-100); HDL CHOLESTEROL 64 mg/dL; LDL CHOLESTEROL,CALCULATED 107 mg/dL; LDL/HDL RATIO 1.7 (<4.4); SODIUM 140 mmol/L (135-145); TOTAL PROTEIN 6.7 g/dL (6.7-8.2); URIC ACID 4.5 mg/dL (2.6-7.2); VLDL CHOLESTEROL 21 mg/dL
[2019-09-05 13:03] LABS: HB2 TOTAL 14.1 g/dL; HEMOGLOBIN A1C 0.6 g/dL
== END 2019-09-05 23:59 | disposition home or self-care (01) ==
LOC: LAB.WCP 08:00
PROVIDERS: ATTEND Physician Assistant Medical
DX: E11.9 Type 2 diabetes mellitus without complications (principal); M19.049 Primary osteoarthritis, unspecified hand
CPT/HCPCS: 36415; 80053; 80061; 83036; 83721; 84550

== ENCOUNTER 2019-10-03 11:20 | Outpatient (CLI) | payer OTHER ==
--- NOTE | 2019-10-03 15:51 | Mammography Report ---
Reason: ROUTINE MAMMO Procedure Date: 10/03/2019 Accession Number: [id number] / [id number] Procedure: ALEX - Screening Mammo w/Tc CPT Code: Final Report FULL RESULT: EXAM: Screening Mammo w/Tc DATE: 10/03/2019 11:57 AM CLINICAL HISTORY: Routine screening TECHNIQUE: (B) - Bilateral CC and MLO views were obtained. COMPARISON: 09/13/2014, 09/12/2012, 08/02/2011, 02/08/2011 PARENCHYMAL PATTERN: (A) - The breasts demonstrate scattered fibroglandular densities bilaterally. FINDINGS: No significant interval change. Stable biopsy clip left breast. There are no suspicious masses, calcifications, or areas of distortion. IMPRESSION: Negative examination. BI-RADS category 1. RECOMMENDATION: (ANNUAL) - Recommend routine annual screening mammography. BI-RADS CATEGORY: (1) - Negative. STANDARD QUALIFYING STATEMENTS: 1. This examination was not reviewed with the aid of Computer-Aided Detection (CAD). 2. A negative or benign imaging report should not preclude biopsy if clinically suspicious findings are present. 3. Dense breasts may obscure an underlying neoplasm. 4. This examination was reviewed with the aid of 3D breast imaging (tomosynthesis).
== END 2019-10-03 11:21 | disposition home or self-care (01) ==
LOC: DI 11:20
DX: Z12.31 Encounter for screening mammogram for malignant neoplasm of breast (principal)
CPT/HCPCS: 77063; 77067

== ENCOUNTER 2019-10-25 16:50 | Outpatient (CLI) | payer OTHER | END 2019-10-25 16:51 | disposition critical access hospital (66) | LOC: EMS 16:50 | PROVIDERS: ATTEND Surgery | DX: R20.2 Paresthesia of skin (principal); M54.2 Cervicalgia | CPT/HCPCS: A0425; A0429 ==

== ENCOUNTER 2019-10-25 17:08 | Emergency (ER) | payer OTHER ==
[2019-10-25 18:26] LABS: BASOPHILS % (AUTO) 0.4 %; EOSINOPHILS # (AUTO) 0.3 10^3/uL (0.0-0.7); EOSINOPHILS % (AUTO) 4.5 %; HGB - HEMOGLOBIN 13.6 g/dL (12.0-16.0); LYMPHOCYTES # (AUTO) 2.2 10^3/uL (1.5-3.5); LYMPHOCYTES % (AUTO) 31.2 %; MEAN CORPUSCULAR HEMOGLOBIN 31.3 pg (27.0-31.0); MEAN CORPUSCULAR HGB CONC 32.7 g/dL (32.0-36.0); MEAN CORPUSCULAR VOLUME 95.9 fL (81.0-99.0); MEAN PLATELET VOLUME 9.8 fL (7.9-10.8); MONOCYTES # (AUTO) 0.5 10^3/uL (0.0-1.0); MONOCYTES % (AUTO) 7.6 %; PLT - PLATELET COUNT 257 10^3/uL (130-450); RED BLOOD COUNT 4.34 10^6/uL (4.20-5.40); RED CELL DISTRIBUTION WIDTH 12.4 % (12.0-15.0); WHITE BLOOD COUNT 7.2 x10^3/uL (4.8-10.8)
[2019-10-25 18:33] LABS: PT - PROTHROMBIN TIME 11.6 secs (9.9-12.6)
--- NOTE | 2019-10-25 18:33 | CT Report ---
Reason: stroke Procedure Date: 10/25/2019 Accession Number: [id number] / [id number] Procedure: CT - HEAD WO CPT Code: Final Report FULL RESULT: EXAM: CT HEAD EXAM DATE: 10/25/2019 05:56 PM. CLINICAL HISTORY: Sudden onset right arm and neck numbness. COMPARISON: HEAD W/O 09/10/2017 1:01 PM. TECHNIQUE: Multiaxial CT images were obtained from the foramen magnum to the vertex. Reformats: Sagittal and coronal. IV contrast: None. In accordance with CT protocol optimization, one or more of the following dose reduction techniques were utilized for this exam: automated exposure control, adjustment of mA and/or KV based on patient size, or use of iterative reconstructive technique. FINDINGS: Parenchyma: There is mild nonfocal periventricular and subcortical white matter hypodensity. Negative for acute intracranial hemorrhage. There is no midline shift or mass-effect. Extraaxial Spaces: No subdural or epidural collections identified. Ventricles: Normal in size and position. Sinuses and Orbits: There is near complete opacification of the left maxillary sinus. There are calcifications within the maxillary sinus. No change. Other sinuses appear clear. Bones: No evidence of fracture or calvarial defect. Other: None. IMPRESSION: 1. Negative for intracranial hemorrhage, mass-effect or edema. 2. Nonfocal white matter disease. Nonspecific and most commonly attributed to sequela of chronic microangiopathy. 3. Chronic left maxillary sinus inflammatory disease [facility]
[2019-10-25 18:39] LABS: ALBUMIN 3.9 g/dL (3.2-5.5); ALBUMIN/GLOBULIN RATIO 1.3 (1.0-2.2); BILIRUBIN,TOTAL 0.3 mg/dL (0.2-1.0); CREATININE 0.7 mg/dL (0.4-1.0); TOTAL PROTEIN 6.9 g/dL (6.7-8.2)
[2019-10-25] MEDS ORDERED: IOVERSOL 320 100 ML VIAL IVP ONE (19:00)
--- NOTE | 2019-10-25 19:24 | ED Physician Documentation ---
History of Present Illness - Stated complaint Stated Complaint: R HAND NUMBNESS - Chief complaint Chief Complaint: Neuro - Additonal information Additional information: Patient comes emergency department complaining of right arm sensory loss and weakness that started around 1615 today. Patient states that she was sitting at her computer working when she suddenly felt. Hot, burning sensation through her right shoulder, arm, right flank, and hip. She states that it felt like there was hot pressure like a hot blood pressure cuff with squeezing her arm. Patient states she was not able to continue typing and it felt as though her fingers would not work properly. Patient states she is felt slightly confused and occasionally cannot find the right words easily since this happened. However, she states that speech symptoms have been very mild. Patient denies any facial droop. No visual changes. No difficulty swallowing. No weakness in her right leg or left side. No other complaints at this time. She states that the symptoms lasted for approximately 10 minutes and then began to resolve. Patient states that now, she feels as though her strength is back in the right side, though she still feels a burning feeling in her right shoulder. Patient denies any history of stroke. She states that she did have some sort of episode back in 2005 which resulted in her being given TPA and sent to [facility]. She does not recall exactly what her symptoms were, but she was evaluated for possible stroke and ultimately told she had not had an ischemic event. Patient at that time did have an MRI. Patient continued to have symptoms on and off and was sent to [facility] in [place], where she was diagnosed with factor V Leiden and Anticardiolipin antibody disorder. Patient states she was diagnosed with something else to, which she cannot remember. She states that at that time, she had been taking aspirin daily and that her doctor told her it was the cause of all her problems. She states she remembers being told that she may have strokelike symptoms, but that the symptoms did not actually represent a stroke. Patient denies any neurologic issues ever since. 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 She denies any recent illness of any kind. She denies chest pain or shortness of breath. No nausea with the episode. Patient does have a history of atypical migraines, including ocular migraines. Patient states that she does not exercise much and has been on a vegetarian keto diet in which she has been eating a lot of eggs plus vegetables. No other complaints at this time. Review of Systems Ten Systems: 10 systems reviewed and negative Constitutional: reports: Reviewed and negative Eyes: reports: Reviewed and negative Ears: reports: Reviewed and negative Nose: reports: Reviewed and negative Throat: reports: Reviewed and negative Cardiac: reports: Reviewed and negative Respiratory: reports: Reviewed and negative GI: reports: Reviewed and negative : reports: Reviewed and negative Skin: reports: Reviewed and negative Musculoskeletal: reports: Reviewed and negative Neurologic: reports: Focal weakness, Numbness, Difficulty speaking Psychiatric: reports: Reviewed and negative Endocrine: reports: Reviewed and negative Immunocompromised: reports: Reviewed and negative PD PAST MEDICAL HISTORY - Past Medical History Past Medical History: Yes Cardiovascular: Hypertension Respiratory: Sleep apnea Endocrine/Autoimmune: HyPOthyroidism GI: GERD, Hemorrhoids : None HEENT: None Psych: None Musculoskeletal: Osteoarthritis Derm: None - Past Surgical History Past Surgical History: Yes General: Colonoscopy 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 - Present Medications Home Medications: Ambulatory Orders Medication Instructions Recorded Confirmed Levothyroxine [Synthroid] 20 mcg PO DAILY 01/25/13 06/22/17 Telmisartan [Micardis] 40 mg PO DAILY 01/25/13 06/22/17 EPINEPHrine [Epipen] 0.3 mg IM ONCE #1 syringe 10/31/14 06/22/17 Naproxen [Naprosyn] 500 mg PO BID PRN #20 tablet 09/10/17 predniSONE [Deltasone] 60 mg PO DAILY 5 Days tablet 11/07/17 - Allergies Allergies/Adverse Reactions: Allergies Allergy/AdvReac Type Severity Reaction Status Date / Time codeine [Codeine] Allergy Severe unknown Verified 06/22/17 13:53 iodine Allergy Severe unknown Verified 06/22/17 13:53 hornet venom Allergy Respiratory Verified 11/07/17 17:08 - Social History Does the pt smoke?: No Smoking Status: Never smoker Does the pt drink ETOH?: No Does the pt have substance abuse?: No - Immunizations Immunizations are current?: Yes - POLST Patient has POLST: No PD ED PE NORMAL - Vitals Vital signs reviewed: Yes - General General: Alert and oriented X 3, No acute distress, Well developed/nourished - HEENT HEENT: Atraumatic, PERRL, EOMI, Moist mucous membranes - Neck Neck: Supple, no meningeal sign - Cardiac Cardiac: RRR, No murmur, Strong equal pulses - Respiratory Respiratory: No respiratory distress, Clear bilaterally - Abdomen Abdomen: Soft, Non tender, Non distended - Back Back: No CVA TTP, No spinal TTP - Derm Derm: Normal color, Warm and dry, No rash - Extremities Extremities: No deformity, Normal ROM s pain, No edema, No calf tenderness / cord - Neuro Neuro: Alert and oriented X 3, contract engineer 2-12 intact, No motor deficit, Normal speech, Other (NIH stroke scale 1 for mild sensory deficit of proximal right upper extremity.) - Psych Psych: Normal mood, Normal affect Results - Vitals Vitals: Vital Signs - 24 hr 10/25/19 10/25/19 17:15 18:52 Temperature 36.4 C L Heart Rate 72 65 Respiratory 16 16 Rate Blood Pressure 154/83 H 155/64 H O2 Saturation 97 98 Oxygen O2 Source Room air - Labs Labs: Laboratory Tests 10/25/19 10/25/19 10/25/19 18:16 18:16 18:16 WBC 7.2 RBC 4.34 Hgb 13.6 Hct 41.6 MCV 95.9 MCH 31.3 H MCHC 32.7 RDW 12.4 Plt Count 257 MPV 9.8 Neut # (Auto) 4.0 Lymph # (Auto) 2.2 Jennings # (Auto) 0.5 Eos # (Auto) 0.3 Baso # (Auto) 0.0 Absolute Nucleated RBC 0.00 Nucleated RBC % 0.0 PT 11.6 INR 1.0 Sodium 138 Potassium 3.7 Chloride 103 Carbon Dioxide 23 Anion Gap 12.0 BUN 19 Creatinine 0.7 Estimated GFR (MDRD) 83 L Glucose 104 H Calcium 9.0 Total Bilirubin 0.3 AST 28 ALT 40 Alkaline Phosphatase 82 Troponin I High Sens Total Protein 6.9 Albumin 3.9 Globulin 3.0 Albumin/Globulin Ratio 1.3 Lipase 46 10/25/19 18:16 WBC RBC Hgb Hct MCV MCH MCHC RDW Plt Count MPV Neut # (Auto) Lymph # (Auto) Jennings # (Auto) Eos # (Auto) Baso # (Auto) Absolute Nucleated RBC Nucleated RBC % PT INR Sodium Potassium Chloride Carbon Dioxide Anion Gap BUN Creatinine Estimated GFR (MDRD) Glucose Calcium Total Bilirubin AST ALT Alkaline Phosphatase Troponin I High Sens 4.6 Total Protein Albumin Globulin Albumin/Globulin Ratio Lipase - Rads (name of study) CT head Radiology: Final report received, EMP read indepedently, See rad report (Final radiologist interpretation: Negative for intracranial hemorrhage; no mass-effect or edema. Nonfocal white matter disease. Nonspecific and most commonly attributed to sequela of chronic microangiopathy. Chronic left maxillary sinus inflammatory disease.) PD MEDICAL DECISION MAKING - ED course Complexity details: reviewed old records, reviewed results, re-evaluated patient, considered differential, d/w patient ED course: The patient was evaluated in the emergency department with labs and CT scan of the head. CT was negative. Labs were unremarkable. I had originally ordered a CT angios of the head and neck, but then patient stated she was allergic to iodine. This had to be canceled. Instead, I ordered a duplex ultrasound of the carotid and vertebral arteries. The patient had complete resolution of her symptoms in the emergency department and I had not objectively appreciated any a aphasia. The patient did have occasional difficulty finding a single word but this was very occasional and patient otherwise conversed without difficulty. I discussed with the patient that it would be ideal if she could be on aspirin, especially considering that she has a history of coagulopathy. The patient states that she sees Dr. Scott and his PA Ms. Carter, and that she does not regularly follow with anybody else. She stated that she has never had any trouble since 2005 and that she does not take anything else for her disorders. The patient's history was somewhat vague in terms of the events surrounding the episodes in 2006 and it was not clear what entirely she was diagnosed with. We did attempt to order records from [facility], but they no longer had records of the visit. We also attempted to order records from [facility], but found that their medical records office was closed. At this point in time, I discussed with the patient that given that her symptoms have completely resolved, the most important aspect of management is prevention and optimization of her cardiovascular status. I have advised her that it is very important for her to have good control of her blood pressure and if possible, to take an aspirin daily. She will need to make sure that this is approved by her doctor but I do not find any reason at this point why she should not be able to take the aspirin, she is not allergic. I have also advised the patient that some degree of exercise, even a 20-minute walk several times weekly, is beneficial for cardiovascular health and can provide some benefit is for stroke prevention. We have discussed that eating a low-cholesterol, largely plant-based diet is also better for cardiovascular health. At this time, the patient has a regular cardi ac rhythm and no murmur, and I do not feel emergent echo is indicated at this time. I have advised the patient that she should follow-up with her primary care physician to have this ordered. Patient is awaiting carotid duplex at this time. She is signed out to Dr. Winter pending these results.
[2019-10-25 21:10] VITALS: BP 142/80
--- NOTE | 2019-10-25 21:20 | Ultrasound Report ---
Reason: tia Procedure Date: 10/25/2019 Accession Number: [id number] / [id number] Procedure: US - Carotid Doppler Complete CPT Code: Final Report FULL RESULT: EXAM: BILATERAL CAROTID AND VERTEBRAL ARTERY DUPLEX DOPPLER ULTRASOUND. EXAM DATE: 10/25/2019 08:20 PM. CLINICAL HISTORY: Transient ischemic attack. COMPARISON: None. TECHNIQUE: Grayscale imaging, color Doppler, and duplex spectral Doppler were used to evaluate the carotid and vertebral arteries bilaterally. Static images were obtained. FINDINGS: The right proximal common carotid artery is tortuous. There is mild calcified irregular plaque in the bilateral internal carotid arteries. Normal antegrade flow is present in bilateral vertebral arteries. VELOCITIES (cm/s): Right CCA mid: PSV 59.2 cm/s CCA dist: PSV 53.3 cm/s ICA prox: PSV 50 cm/s, EDV 9.5 cm/s ICA mid: PSV 70 cm/s, EDV 21.1 cm/s ICA dist: PSV 89.4 cm/s, EDV 23.9 cm/s ECA: PSV 80.7 cm/s Vert: PSV 91.7 cm/s ICA/CCA: 1.5 Left CCA mid: PSV 61.1 cm/s CCA dist: PSV 72.5 cm/s ICA prox: PSV 52.6 cm/s, EDV 11.9 cm/s ICA mid: PSV 69.3 cm/s, EDV 24.1 cm/s ICA dist: PSV 78.4 cm/s, EDV 21.9 cm/s ECA: PSV 73.4 cm/s Vert: PSV 76.9 cm/s ICA/CCA: 1.1 ICA diameter stenosis: Right: <50% by velocity and <70% by NASCET criteria. Left: <50% by velocity and <70% by NASCET criteria. IMPRESSION: 1. Mild calcified bilateral carotid artery plaquing. 2. In the right carotid artery there are no elevated carotid artery velocities to suggest hemodynamically significant stenosis. 3. In the left carotid artery there are no elevated carotid artery velocities to suggest hemodynamically significant stenosis. 4. Normal antegrade flow is present in bilateral vertebral arteries. General Recommendations: Stenosis =50% ICA - Follow-up ultrasound 6-12 months Stenosis <50% ICA - High Risk Patient with plaque - Follow-up ultrasound 1-2 years Normal Study but High Risk Patient - Follow-up ultrasound 3-5 years Management recommendations and diagnostic criteria are based on current IAC endorsed standards in Carotid Artery Stenosis: Grayscale and Doppler Ultrasound Diagnosis. Validated velocity measurements with angiographic measurements and velocity criteria are extrapolated from diameter data as defined by the Society of Radiologists in Ultrasound Consensus Conference Radiology 2003; 229;340-346. [facility]
--- NOTE | 2019-10-25 21:36 | ED Physician Documentation ---
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 valente teran. please see separate note for complete h&p and disposition. per dr. valente teran plan is to follow up on carotid dup us, if neg then dc home.) Review of Systems Constitutional: reports: Reviewed and negative Eyes: reports: Reviewed and negative Ears: reports: Reviewed and negative Nose: reports: Reviewed and negative Throat: reports: Reviewed and negative Cardiac: reports: Reviewed and negative Respiratory: reports: Reviewed and negative GI: reports: Reviewed and negative : reports: Reviewed and negative Skin: reports: Reviewed and negative Musculoskeletal: reports: Reviewed and negative Neurologic: reports: Reviewed and negative Psychiatric: reports: Reviewed and negative Endocrine: reports: Reviewed and negative Immunocompromised: reports: Reviewed and negative PD PAST MEDICAL HISTORY - Past Medical History Past Medical History: Yes Cardiovascular: Hypertension Respiratory: Sleep apnea Endocrine/Autoimmune: HyPOthyroidism GI: GERD, Hemorrhoids : None HEENT: None Psych: None Musculoskeletal: Osteoarthritis Derm: None - Past Surgical History Past Surgical History: Yes General: Colonoscopy Ortho: Carpal 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 - Present Medications Home Medications: Ambulatory Orders Medication Instructions Recorded Confirmed Levothyroxine [Synthroid] 20 mcg PO DAILY 01/25/13 06/22/17 Telmisartan [Micardis] 40 mg PO DAILY 01/25/13 06/22/17 EPINEPHrine [Epipen] 0.3 mg IM ONCE #1 syringe 10/31/14 06/22/17 Naproxen [Naprosyn] 500 mg PO BID PRN #20 tablet 09/10/17 predniSONE [Deltasone] 60 mg PO DAILY 5 Days tablet 11/07/17 Aspirin Chewable [[facility] [place] 81 mg PO DAILY 30 Days #30 tablet 10/25/19 Aspirin] - Allergies Allergies/Adverse Reactions: Allergies Allergy/AdvReac Type Severity Reaction Status Date / Time codeine [Codeine] Allergy Severe unknown Verified 06/22/17 13:53 iodine Allergy Severe unknown Verified 06/22/17 13:53 hornet venom Allergy Respiratory Verified 11/07/17 17:08 - Social History Does the pt smoke?: No Smoking Status: Never smoker Does the pt drink ETOH?: No Does the pt have substance abuse?: No - Immunizations Immunizations are current?: Yes - POLST Patient has POLST: No PD ED PE NORMAL - Vitals Vital signs reviewed: Yes - General General: Alert and oriented X 3, No acute distress, Well developed/nourished - HEENT HEENT: Atraumatic, PERRL, Moist mucous membranes, Pharynx benign - Neck Neck: Supple, no meningeal sign - Cardiac Cardiac: RRR, No murmur - Respiratory Respiratory: No respiratory distress, Clear bilaterally - Abdomen Abdomen: Normal bowel sounds, Soft, Non tender, Non distended - Derm Derm: Warm and dry - Extremities Extremities: No deformity, No tenderness to palpate, No edema - Neuro Neuro: Alert and oriented X 3, clinical dermatologist 2-12 intact, No motor deficit, No sensory deficit, Normal speech - Psych Psych: Normal mood, Normal affect Results - Vitals Vitals: Vital Signs - 24 hr 10/25/19 10/25/19 10/25/19 17:15 18:52 20:10 Temperature 36.4 C L Heart Rate 72 65 65 Respiratory 16 16 15 Rate Blood Pressure 154/83 H 155/64 H 164/83 H O2 Saturation 97 98 98 10/25/19 21:09 Temperature Heart Rate 67 Respiratory 14 Rate Blood Pressure 142/80 H O2 Saturation 97 Oxygen O2 Source Room air - Labs Labs: Laboratory Tests 10/25/19 10/25/19 10/25/19 18:16 18:16 18:16 WBC 7.2 RBC 4.34 Hgb 13.6 Hct 41.6 MCV 95.9 MCH 31.3 H MCHC 32.7 RDW 12.4 Plt Count 257 MPV 9.8 Neut # (Auto) 4.0 Lymph # (Auto) 2.2 Scurry # (Auto) 0.5 Eos # (Auto) 0.3 Baso # (Auto) 0.0 Absolute Nucleated RBC 0.00 Nucleated RBC % 0.0 PT 11.6 INR 1.0 Sodium 138 Potassium 3.7 Chloride 103 Carbon Dioxide 23 Anion Gap 12.0 BUN 19 Creatinine 0.7 Estimated GFR (MDRD) 83 L Glucose 104 H Calcium 9.0 Total Bilirubin 0.3 AST 28 ALT 40 Alkaline Phosphatase 82 Troponin I High Sens Total Protein 6.9 Albumin 3.9 Globulin 3.0 Albumin/Globulin Ratio 1.3 Lipase 46 10/25/19 18:16 WBC RBC Hgb Hct MCV MCH MCHC RDW Plt Count MPV Neut # (Auto) Lymph # (Auto) Scurry # (Auto) Eos # (Auto) Baso # (Auto) Absolute Nucleated RBC Nucleated RBC % PT INR Sodium Potassium Chloride Carbon Dioxide Anion Gap BUN Creatinine Estimated GFR (MDRD) Glucose Calcium Total Bilirubin AST ALT Alkaline Phosphatase Troponin I High Sens 4.6 Total Protein Albumin Globulin Albumin/Globulin Ratio Lipase PD MEDICAL DECISION MAKING - ED course Complexity details: re-evaluated patient (patient revaluated, she is asymptomatic her carotid duplex us is unremarkable. she will follow up with her pcp tomorrow.), d/w patient Departure - Departure Disposition: Home, Self Care Clinical Impression: Stroke-like symptoms Condition: Stable Instructions: ED Transient Ischemic Attack Follow-Up: Savannah Carter PA-C [Primary Care Provider] - Tomorrow Prescriptions: Aspirin Chewable [St Roshan Aspirin] 81 mg PO DAILY 30 Days #30 tablet Comments: Your labs look good, and your CT scan does not show any acute findings at this time. It is very important that you follow-up with your doctor about your symptoms and do everything that you can to optimize your cardiovascular health. We recommend taking a baby aspirin once daily for preventative purposes, and also, that you monitor your blood pressures and work closely with your doctor to get on a regimen that we will keep your blood pressure well controlled. Please make a goal to do some sort of exercise for 20 minutes most days of the week, even going for a walk. Please also work with your doctor on a good diet for cardiovascular health. In general, try to incorporate as much plant-based nutrition as possible. If you develop symptoms such as you have had today again, you should return to the emergency department immediately. Discharge Date/Time: 10/25/19 22:34
== END 2019-10-25 22:34 | disposition home or self-care (01) ==
LOC: EDUNIT# → ED 17:08
DX: R20.0 Anesthesia of skin (principal); R20.8 Other disturbances of skin sensation; R47.02 Dysphasia; R41.0 Disorientation, unspecified; I10 Essential (primary) hypertension
CPT/HCPCS: 36415; 70450; 80053; 83690; 84484; 85025; 85610; 93880; 99284; 99285

== ENCOUNTER 2020-02-28 08:00 | Outpatient (CLI) | payer OTHER ==
[2020-02-28 19:03] LABS: ALBUMIN 3.9 g/dL (3.2-5.5); ALBUMIN/GLOBULIN RATIO 1.3 (1.0-2.2); ALKALINE PHOSPHATASE 74 IU/L (42-121); ALT ALANINE AMINOTRANSFERASE 40 IU/L (10-60); AST ASPARTATE AMINOTRANSFERASE 32 IU/L (10-42); BILIRUBIN,TOTAL 0.5 mg/dL (0.2-1.0); BUN - BLOOD UREA NITROGEN 15 mg/dL (6-20); CALCIUM 9.8 mg/dL (8.5-10.3); CARBON DIOXIDE - CO2 23 mmol/L (21-32); CHLORIDE 103 mmol/L (101-111); CHOLESTEROL 198 mg/dL; CREATININE 0.8 mg/dL (0.4-1.0); GLUCOSE 104 mg/dL (70-100); HDL CHOLESTEROL 66 mg/dL; LDL CHOLESTEROL,CALCULATED 109 mg/dL; LDL/HDL RATIO 1.7 (<4.4); SODIUM 141 mmol/L (135-145); VLDL CHOLESTEROL 23 mg/dL
[2020-02-28 19:26] LABS: HB2 TOTAL 14.4 g/dL; HEMOGLOBIN A1C 0.65 g/dL; HEMOGLOBIN A1C % 6.3 % (4.6-6.2)
== END 2020-02-28 23:59 | disposition home or self-care (01) ==
LOC: LAB.WCP 08:00
PROVIDERS: ATTEND Physician Assistant Medical
DX: E11.9 Type 2 diabetes mellitus without complications (principal)
CPT/HCPCS: 36415; 80053; 80061; 83036; 83721

== ENCOUNTER 2021-01-13 08:18 | Outpatient (CLI) | payer OTHER ==
--- NOTE | 2021-01-14 13:39 | Mammography Report ---
BILATERAL DIGITAL SCREENING MAMMOGRAM 3D/2D: 01/13/2021 CLINICAL: Routine screening. Comparison is made to exams dated: 12/19/2019 mammogram, 09/13/2014 mammogram, 09/12/2012 mammogram, 07/18 mammogram, 02/08/2011 mammogram, and 01/26/2011 mammogram - [facility]. The t issue of both breasts is predominantly fatty. There is an asymmetry in the right breast middle depth lateral region seen on the craniocaudal view o nly. There is an asymmetry in the left breast middle depth central to the nipple seen on the craniocaudal view only. No other significant masses or calcifications are seen in either breast. IMPRESSION: INCOMPLETE: NEEDS ADDITIONAL IMAGING EVALUATION The asymmetry in the right breast middle depth lateral region seen on the craniocaudal view only is i ndeterminate. Additional views with possible ultrasound are recommended. The asymmetry in the left breast middle depth central to the nipple seen on the craniocaudal view onl y is indeterminate. Additional views with possible ultrasound are recommended. This exam was interpreted at Station ID: [id number]. NOTE: For mammograms, a report in lay terms will be sent to the patient. Approximately 15% of breast malignancies will not be visualized mammographically. In the management of a palpable breast mass, a negative mammogram must not discourage biopsy of a clinically suspicious lesion. Electronically Signed By: Vince Mckeon M.D. jr/:01/13/2021 10:05:40 ACR BI-RADS Category 0: Incomplete 3340F PARENCHYMAL PATTERN: (F) - The breast(s) demonstrate(s) diffuse fatty replacement. BI-RADS CATEGORY: (0) - 0 Mammo and [place] [id number] Immediate follow-up LATERALITY: (B)
== END 2021-01-13 08:19 | disposition home or self-care (01) ==
LOC: DI 08:18
DX: Z12.31 Encounter for screening mammogram for malignant neoplasm of breast (principal); R92.8 Other abnormal and inconclusive findings on diagnostic imaging of breast

== ENCOUNTER 2021-01-13 08:19 | Outpatient (CLI) | payer OTHER ==
--- NOTE | 2021-01-13 12:20 | DEXA Report ---
PROCEDURE: Dexa Spine and/or Hip INDICATIONS: POST MENOPAUSAL STATUS TECHNIQUE: Dual energy x-ray absorptiometry (DXA) was performed on a [employer] System. Regions measur ed are the AP Spine, femoral neck, and if needed forearm. COMPARISON: None. FINDINGS: Lumbar Spine: Bone Mineral Density 1.227 g/cm/cm,T score 0.4, normal G Hip: Bone Mineral Density 1.111 g/cm/cm,T score 0.8, normal Left Femoral Neck: Bone Mineral Density 0.875 g/cm/cm, T score -1.2, minimal osteopenia (T score greater or equal to -1.0: NORMAL) (T score from -1.1 to -2.4: OSTEOPENIA) (T score less than or equal to -2.5 to: OSTEOPOROSIS) Impression: Minimal osteopenia. Patients with diagnosis of osteoporosis or osteopenia should have regular bone mineral density assess ment. For those eligible for Medicare, routine testing is allowed once every 2 years. Testing frequ ency can be increased for patients who have rapidly progressing disease or for those who are receivin g medical therapy to restore bone mass. Reviewed by: Camila Brumfield MD on 01/13/2021 12:18 PM PDT Approved by: Camila Brumfield MD on 01/13/2021 12:18 PM PDT Station ID: [id number]
== END 2021-01-13 08:20 | disposition home or self-care (01) ==
LOC: DI 08:19
PROVIDERS: ATTEND Physician Assistant Medical
DX: M85.88 Other specified disorders of bone density and structure, other site (principal); E11.9 Type 2 diabetes mellitus without complications
CPT/HCPCS: 36415; 80053; 80061; 82043; 82570; 83036; 83721; 84443

== ENCOUNTER 2021-01-13 08:52 | Outpatient (CLI) | payer OTHER ==
[2021-01-13 10:24] LABS: ALBUMIN 4.3 g/dL (3.2-5.5); ALBUMIN/GLOBULIN RATIO 1.5 (1.0-2.2); ALKALINE PHOSPHATASE 82 IU/L (42-121); ALT ALANINE AMINOTRANSFERASE 56 IU/L (10-60); AST ASPARTATE AMINOTRANSFERASE 43 IU/L (10-42); BILIRUBIN,TOTAL 0.6 mg/dL (0.2-1.0); BUN - BLOOD UREA NITROGEN 17 mg/dL (6-20); CALCIUM 8.7 mg/dL (8.5-10.3); CARBON DIOXIDE - CO2 23 mmol/L (21-32); CHLORIDE 105 mmol/L (101-111); CHOL/HDL RATIO 3.4 (<4.4); CHOLESTEROL 200 mg/dL; CREATININE 0.8 mg/dL (0.4-1.0); GFR - MDRD 71 (>89); GLUCOSE 147 mg/dL (70-100); HDL CHOLESTEROL 59 mg/dL; LDL CHOLESTEROL,CALCULATED 115 mg/dL; LDL/HDL RATIO 1.9 (<4.4); POTASSIUM 4.2 mmol/L (3.5-5.0); SODIUM 137 mmol/L (135-145); TOTAL PROTEIN 7.2 g/dL (6.7-8.2); TRIGLYCERIDES 130 mg/dL; VLDL CHOLESTEROL 26 mg/dL
[2021-01-13 10:36] LABS: THYROID STIMULATING HORMONE 1.89 uIU/mL (0.34-5.60)
[2021-01-13 11:00] LABS: CREATININE,URINE 227.2 mg/dL; MICROALBUM/CREATININE RATIO,UR 6.6 ug/mg (<30.0); MICROALBUMIN,URINE 1.5 mg/dL (0-300.0)
[2021-01-13 14:27] LABS: ESTIMATED AVERAGE GLUCOSE 154 mg/dL (70-100)
== END 2021-01-13 08:53 | disposition home or self-care (01) ==
LOC: LAB 08:52
PROVIDERS: ATTEND Physician Assistant Medical
DX: E11.9 Type 2 diabetes mellitus without complications (principal)
CPT/HCPCS: 36415; 80053; 80061; 82043; 82570; 83036; 83721; 84443

== ENCOUNTER 2021-01-29 11:13 | Outpatient (CLI) | payer OTHER ==
--- NOTE | 2021-01-30 11:36 | Mammography Report ---
BILATERAL DIGITAL DIAGNOSTIC MAMMOGRAM 3D/2D: 01/29/2021 CLINICAL: Patient returns today to evaluate a density in the right breast. Patient returns today to e valuate asymmetries in bilateral breasts. Comparison is made to exams dated: 01/13/2021 mammogram, 12/19/2019 mammogram, 10/03/2019 mammogram, 08/19 mammogram, 09/12/2012 mammogram, and 08/02/2011 mammogram - [facility]. The t issue of both breasts is predominantly fatty. Previously questioned asymmetries are both better characterized with spot compression. These have smo oth margins and upon careful scrutinization and comparison with older examinations, are unchanged sin ce at least 2014. IMPRESSION: BENIGN There is no mammographic evidence of malignancy. Return to annual mammogram screening schedule is rec ommended. This exam was interpreted at Station ID: [id number]. NOTE: For mammograms, a report in lay terms will be sent to the patient. Approximately 15% of breast malignancies will not be visualized mammographically. In the management of a palpable breast mass, a negative mammogram must not discourage biopsy of a clinically suspicious lesion. Electronically Signed By: Vince Mckeon M.D. jr/:01/29/2021 12:04:21 ACR BI-RADS Category 2: Benign Finding(s) 3342F PARENCHYMAL PATTERN: (F) - The breast(s) demonstrate(s) diffuse fatty replacement. BI-RADS CATEGORY: (2) - 2 Mammogram [id number] return to screening LATERALITY: (B)
== END 2021-01-29 11:14 | disposition home or self-care (01) ==
LOC: DI 11:13
PROVIDERS: ATTEND Physician Assistant Medical
DX: R92.8 Other abnormal and inconclusive findings on diagnostic imaging of breast (principal)

== ENCOUNTER 2021-03-02 08:00 | Outpatient (CLI) | payer MEDICARE | END 2021-03-02 23:59 | disposition home or self-care (01) | LOC: LAB.N 08:00 | PROVIDERS: ATTEND Physician Assistant Medical | DX: R22.1 Localized swelling, mass and lump, neck (principal); Z20.822 Contact with and (suspected) exposure to COVID-19 ==

== ENCOUNTER 2021-03-12 10:49 | Outpatient (CLI) | payer MEDICARE ==
--- NOTE | 2021-03-12 14:17 | Ultrasound Report ---
PROCEDURE: Head or Neck Soft Tissue INDICATIONS: HYPOTHYROIDISM TECHNIQUE: Real time scanning was performed of the neck region of interest, with image documentation . COMPARISON: None. FINDINGS: The right thyroid gland measures 4.2 x 1.5 x 1.8 cm. The left thyroid gland measures 3.8 x 1.3 x 1.4 cm. Thyroid nodules: Right superior lobe. 7 x 4 x 6 mm. Wider than tall. Predominantly solid. Hypoechoic echogenicity. Smo oth margins. Punctate echogenic foci. Right isthmus. 4 x 4 x 3 mm. Wider than tall. Solid. Hypoechoic echogenicity. It irregular margins. N o echogenic foci. Left superior lobe. 6 x 3 x 5 mm. Wider than tall. Solid. Hypoechoic echogenicity. Smooth margins. No echogenic foci. Left inferior lateral lobe. 4 x 2 x 4 mm. Wider than tall. Solid. Hypoechoic echogenicity. Smooth mar gins. No echogenic foci. IMPRESSION: 1. Right superior lobe nodule measuring 7 x 4 x 6 mm. TI-RADS 5. Given size less than 1 cm, recommend follow-up in one year. 2. Right isthmus nodule measuring 4 x 4 by 3 mm. TI-RADS 4. Recommend follow-up in one year. 3. Left superior lobe nodule measuring 6 x 3 x 5 mm. TI-RADS 4. Recommend follow-up in one year. 4. Left inferior lateral lobe 4 x 2 x 4 mm. TI-RADS 4. Recommend follow-up in one year. Reviewed by: Regan Gage on 03/12/2021 2:16 PM PDT Approved by: Regan Gage on 03/12/2021 2:16 PM PDT Station ID: [id number]
== END 2021-03-12 10:50 | disposition home or self-care (01) ==
LOC: DI 10:49
PROVIDERS: ATTEND Physician Assistant Medical
DX: E03.9 Hypothyroidism, unspecified (principal); E04.2 Nontoxic multinodular goiter

== ENCOUNTER 2021-03-17 07:58 | Day surgery (SDC) | payer MEDICARE ==
[2021-03-17] MEDS ORDERED: LACTATED RINGERS 1,000 ML IV ONE ×2 (08:44→10:32)
--- NOTE | 2021-03-17 09:17 | ANESTHESIA ---
Pre-Anesthesia VS, & Labs - Diagnosis hx of colon polyps - Procedure colonoscopy Vital Signs: Temp Pulse Resp BP Pulse Ox 36.5 C 78 16 145/79 H 96 03/17/21 08:00 03/17/21 08:00 03/17/21 08:00 03/17/21 08:00 03/17/21 08:00 Height: 5 ft 5 in Weight (kg): 97.8 kg Body Mass Index: 35.9 BMI Classification: Obese - Is Patient ?: No - Lab Results Lab results reviewed: Yes Home Medications and Allergies Home Medications: Ambulatory Orders Calcium Carbonate/Vitamin D3 [Calcium 500 mg Chewable Tablet] 1,000 mg ORAL DAILY 03/17/21 Cetirizine [ZyrTEC] 1 tab ORAL DAILY 03/17/21 Ezetimibe [Zetia] 1 tab ORAL DAILY 03/17/21 Magnesium 1 tab ORAL DAILY 03/17/21 Valacyclovir HCl [Valtrex] 2 tab ORAL 03/17/21 Levothyroxine [Synthroid] 20 mcg PO DAILY 01/25/13 Telmisartan [Micardis] 40 mg PO DAILY 01/25/13 Calcium Carbonate/Vitamin D3 [Calcium 500 mg Chewable Tablet] 1,000 mg ORAL DAILY 03/17/21 Cetirizine [ZyrTEC] 1 tab ORAL DAILY 03/17/21 Ezetimibe [Zetia] 1 tab ORAL DAILY 03/17/21 Magnesium 1 tab ORAL DAILY 03/17/21 Valacyclovir HCl [Valtrex] 2 tab ORAL 03/17/21 Allergies/Adverse Reactions: Allergies Allergy/AdvReac Type Severity Reaction Status Date / Time codeine [Codeine] Allergy Severe unknown Verified 06/22/17 13:53 iodine Allergy Severe unknown Verified 06/22/17 13:53 hornet venom Allergy Respiratory Verified 11/07/17 17:08 bee stings Allergy Unknown Uncoded 10/26/19 07:44 statins Allergy Unknown Uncoded 10/26/19 07:44 Anes History & Medical History - Anesthetic History Anesthesia Complications: reports: No previous complications Family history of Anesthesia Complications: Denies Family history of Malignant Hyperthermia: Denies - Medical History Cardiovascular: reports: Hypertension Pulmonary: reports: Sleep apnea Gastrointestinal: reports: GERD, Hemorrhoids Urinary: reports: None Musculoskeletal: reports: Osteoarthritis Endocrine/Autoimmune: reports: HyPOthyroidism Skin: reports: None Smoking Status: Never smoker - Surgical History General: reports: Colonoscopy Gynecologic: reports: section Orthopedic: reports: Carpal Tunnel surgery Exam General: Alert, Oriented x3, Cooperative Dental: WNL Mouth Openin Fingerbreadth Neck Mobility: Normal Mallampati classification: I, II Thyromental Distance: 4-6 cm Respiratory: Lungs clear, Normal breath sounds, No respiratory distress, No accessory muscle use Cardiovascular: Regular rate Neurological: Normal speech Mental/Cognitive Status: Alert/Oriented X3, Normal for patient Cognitive Status: Within normal limits Plan Anesthesia Type: Total IV Consent for Procedure(s) Verified and Reviewed: Yes Code Status: Attempt Resuscitation ASA classification: 2-Mild systemic disease Is this case an emergency?: No
[2021-03-17] MEDS ORDERED: PROPOFOL 200 MG/20 ML VIAL IVP ONE (10:01)
[2021-03-17] MEDS ORDERED: fentaNYL 100 MCG/2 ML VIAL ONE (10:01)
[2021-03-17] MEDS ORDERED: MIDAZOLAM 2 MG/2 ML VIAL ONE (10:01)
[2021-03-17 10:58] VITALS: BP 123/71
--- NOTE | 2021-03-17 15:08 | ANESTHESIA POST OP EVALUATION ---
Anesthesia Post Eval - Post Anesthesia Eval Vitals: Last Vital Signs Temp 36.9 C 03/17/21 10:56 Pulse 68 03/17/21 10:56 Resp 17 03/17/21 10:56 BP 123/71 03/17/21 10:56 Pulse Ox 96 03/17/21 10:56 CV Function Including HR & BP: Stable Pain Control: Satisfactory Nausea & Vomiting: Negative Mental Status: Baseline Respiratory Status: Airway Patent Hydration Status: Satisfactory Anesthesia Complications: None
== END 2021-03-17 07:59 | disposition home or self-care (01) ==
LOC: SDS 07:58
PROVIDERS: ATTEND Surgery
DX: Z12.11 Encounter for screening for malignant neoplasm of colon (principal); K57.30 Diverticulosis of large intestine without perforation or abscess without bleeding; K64.4 Residual hemorrhoidal skin tags; K64.8 Other hemorrhoids; G47.30 Sleep apnea, unspecified; D68.312 Antiphospholipid antibody with hemorrhagic disorder; E66.9 Obesity, unspecified; Z68.35 Body mass index [BMI] 35.0-35.9, adult
CPT/HCPCS: G0105; J7120

== ENCOUNTER 2021-08-19 12:09 | Outpatient (CLI) | payer MEDICARE ==
[2021-08-19 18:35] LABS: BASOPHILS % (AUTO) 0.7 %; EOSINOPHILS # (AUTO) 0.4 10^3/uL (0.0-0.7); EOSINOPHILS % (AUTO) 6.6 %; HCT - HEMATOCRIT 44.5 % (37.0-47.0); HGB - HEMOGLOBIN 14.3 g/dL (12.0-16.0); MEAN CORPUSCULAR HEMOGLOBIN 31.3 pg (27.0-31.0); MEAN CORPUSCULAR HGB CONC 32.1 g/dL (32.0-36.0); MEAN CORPUSCULAR VOLUME 97.4 fL (81.0-99.0); MEAN PLATELET VOLUME 11.1 fL (7.9-10.8); MONOCYTES # (AUTO) 0.5 10^3/uL (0.0-1.0); MONOCYTES % (AUTO) 8.2 %; NEUTROPHILS % (AUTO) 50.3 %; PLT - PLATELET COUNT 296 10^3/uL (130-450); RED BLOOD COUNT 4.57 10^6/uL (4.20-5.40); RED CELL DISTRIBUTION WIDTH 12.6 % (12.0-15.0); WHITE BLOOD COUNT 5.9 x10^3/uL (4.8-10.8)
[2021-08-19 19:19] LABS: ALBUMIN 4.2 g/dL (3.2-5.5); ALBUMIN/GLOBULIN RATIO 1.4 (1.0-2.2); ALKALINE PHOSPHATASE 77 IU/L (42-121); ALT ALANINE AMINOTRANSFERASE 52 IU/L (10-60); AST ASPARTATE AMINOTRANSFERASE 39 IU/L (10-42); BILIRUBIN,TOTAL 0.7 mg/dL (0.2-1.0); BUN - BLOOD UREA NITROGEN 20 mg/dL (6-20); CALCIUM 9.4 mg/dL (8.5-10.3); CARBON DIOXIDE - CO2 24 mmol/L (21-32); CHLORIDE 105 mmol/L (101-111); CHOL/HDL RATIO 3.2 (<4.4); CHOLESTEROL 218 mg/dL; CREATININE 0.8 mg/dL (0.4-1.0); GFR - MDRD 71 (>89); GLUCOSE 128 mg/dL (70-100); HDL CHOLESTEROL 68 mg/dL; LDL CHOLESTEROL,CALCULATED 122 mg/dL; LDL/HDL RATIO 1.8 (<4.4); SODIUM 138 mmol/L (135-145); TOTAL PROTEIN 7.3 g/dL (6.7-8.2); TRIGLYCERIDES 142 mg/dL; VLDL CHOLESTEROL 28 mg/dL
[2021-08-19 19:24] LABS: THYROID STIMULATING HORMONE 1.03 uIU/mL (0.34-5.60)
== END 2021-08-19 12:10 | disposition home or self-care (01) ==
LOC: LAB.N 12:09
PROVIDERS: ATTEND Physician Assistant Medical
DX: E11.9 Type 2 diabetes mellitus without complications (principal); E03.9 Hypothyroidism, unspecified; K21.9 Gastro-esophageal reflux disease without esophagitis
CPT/HCPCS: 36415; 80053; 80061; 83721; 84443; 85025

== ENCOUNTER 2021-10-08 06:23 | Day surgery (SDC) | payer MEDICARE, BC ==
[2021-10-08] MEDS ORDERED: LACTATED RINGERS 1,000 ML IV ONE ×2 (06:46→07:53)
[2021-10-08] MEDS ORDERED: PROPOFOL 200 MG/20 ML VIAL IVP ONE (07:05)
[2021-10-08] MEDS ORDERED: LIDOCAINE-MPF 2% 5 ML VIAL ONE (07:05)
[2021-10-08] MEDS ORDERED: MIDAZOLAM 2 MG/2 ML VIAL ONE (07:09)
--- NOTE | 2021-10-08 07:18 | ANESTHESIA ---
Pre-Anesthesia VS, & Labs - Diagnosis dysphagia - Procedure EGD Vital Signs: Temp Pulse Resp BP Pulse Ox 36.1 C L 72 19 136/69 H 97 10/08/21 06:30 10/08/21 06:30 10/08/21 06:30 10/08/21 06:30 10/08/21 06:30 Height: 5 ft 5 in Weight (kg): 99 kg Body Mass Index: 36.3 BMI Classification: Obese - NPO >8 hours - Is Patient ?: No - Lab Results Current Lab Results: Laboratory Tests 10/08/21 06:47: POC Whole Bld Glucose 123 H Home Medications and Allergies Home Medications: Ambulatory Orders Cholecalciferol (Vitamin D3) [Vitamin D3] 1,250 mcg PO DAILY 10/07/21 Cyanocobalamin (Vitamin B-12) [Vitamin B-12] 1,000 mcg PO DAILY 10/07/21 Lactobacillus Combination No.4 [Probiotic] 1 each PO DAILY 10/07/21 Levothyroxine [Synthroid] 88 mcg PO QDAC 10/07/21 Multivitamin 1 each PO DAILY 10/07/21 Turmeric 400 mg PO DAILY 10/07/21 Telmisartan [Micardis] 40 mg PO DAILY 01/25/13 Calcium Carbonate/Vitamin D3 [Calcium 500 mg Chewable Tablet] 1,000 mg ORAL DAILY 03/17/21 Cetirizine [ZyrTEC] 1 tab ORAL DAILY 03/17/21 Ezetimibe [Zetia] 1 tab ORAL DAILY 03/17/21 Magnesium 1 tab ORAL DAILY 03/17/21 Valacyclovir HCl [Valtrex] 2 tab ORAL DAILY 03/17/21 Cholecalciferol (Vitamin D3) [Vitamin D3] 1,250 mcg PO DAILY 10/07/21 Cyanocobalamin (Vitamin B-12) [Vitamin B-12] 1,000 mcg PO DAILY 10/07/21 Lactobacillus Combination No.4 [Probiotic] 1 each PO DAILY 10/07/21 Levothyroxine [Synthroid] 88 mcg PO QDAC 10/07/21 Multivitamin 1 each PO DAILY 10/07/21 Turmeric 400 mg PO DAILY 10/07/21 Allergies/Adverse Reactions: Allergies Allergy/AdvReac Type Severity Reaction Status Date / Time codeine [Codeine] Allergy Severe unknown Verified 06/22/17 13:53 iodine Allergy Severe unknown Verified 06/22/17 13:53 hornet venom Allergy Respiratory Verified 11/07/17 17:08 bee stings Allergy Unknown Uncoded 10/26/19 07:44 statins Allergy Unknown Uncoded 10/26/19 07:44 Anes History & Medical History - Anesthetic History Anesthesia Complications: reports: No previous complications Family history of Anesthesia Complications: Denies Family history of Malignant Hyperthermia: Denies - Medical History Cardiovascular: reports: Hypertension Pulmonary: reports: Sleep apnea Gastrointestinal: reports: GERD, Hemorrhoids Urinary: reports: None Musculoskeletal: reports: Osteoarthritis Endocrine/Autoimmune: reports: HyPOthyroidism Skin: reports: None Smoking Status: Never smoker History of Cancer?: No - Surgical History General: reports: Colonoscopy, EGD Gynecologic: reports: section Orthopedic: reports: Carpal Tunnel surgery Exam General: Alert, Oriented x3, Cooperative Dental: WNL Mouth Openin Fingerbreadth Neck Mobility: Normal Mallampati classification: II Thyromental Distance: 4-6 cm Respiratory: Lungs clear Cardiovascular: Regular rate Abdomen: Normal bowel sounds Extremities: No clubbing Neurological: Normal gait Mental/Cognitive Status: Alert/Oriented X3 Cognitive Status: Within normal limits Plan Anesthesia Type: Total IV Consent for Procedure(s) Verified and Reviewed: Yes Code Status: Attempt Resuscitation ASA classification: 2-Mild systemic disease Is this case an emergency?: No
[2021-10-08 08:28] VITALS: BP 142/87
--- NOTE | 2021-10-08 13:43 | ANESTHESIA POST OP EVALUATION ---
Anesthesia Post Eval - Post Anesthesia Eval Vitals: Last Vital Signs Temp 36.4 C L 10/08/21 08:27 Pulse 61 10/08/21 08:27 Resp 16 10/08/21 08:27 BP 142/87 H 10/08/21 08:27 Pulse Ox 99 10/08/21 08:27 CV Function Including HR & BP: Stable Pain Control: Satisfactory Nausea & Vomiting: Negative Mental Status: Baseline Respiratory Status: Airway Patent Hydration Status: Satisfactory Anesthesia Complications: None
== END 2021-10-08 06:24 | disposition home or self-care (01) ==
LOC: SDS 06:23
PROVIDERS: ATTEND Surgery
PROC: 0DB28ZX Excision of Middle Esophagus, Via Natural or Artificial Opening Endoscopic, Diagnostic (ICD-10-PCS; principal; 2021-10-08 07:30)
DX: R13.10 Dysphagia, unspecified (principal); K20.0 Eosinophilic esophagitis; K22.4 Dyskinesia of esophagus; K21.9 Gastro-esophageal reflux disease without esophagitis; G47.30 Sleep apnea, unspecified; E66.9 Obesity, unspecified; Z68.36 Body mass index [BMI] 36.0-36.9, adult
CPT/HCPCS: 43239; J7120

== ENCOUNTER 2022-01-14 13:35 | Outpatient (CLI) | payer MEDICARE, BC ==
[2022-01-14 17:58] LABS: BASOPHILS % (AUTO) 0.5 %; EOSINOPHILS # (AUTO) 0.3 10^3/uL (0.0-0.7); EOSINOPHILS % (AUTO) 5.1 %; LYMPHOCYTES # (AUTO) 1.9 10^3/uL (1.5-3.5); LYMPHOCYTES % (AUTO) 32.1 %; MEAN CORPUSCULAR HEMOGLOBIN 31.3 pg (27.0-31.0); MEAN CORPUSCULAR HGB CONC 32.6 g/dL (32.0-36.0); MEAN PLATELET VOLUME 11.2 fL (7.9-10.8); MONOCYTES # (AUTO) 0.5 10^3/uL (0.0-1.0); MONOCYTES % (AUTO) 7.5 %; NEUTROPHILS # (AUTO) 3.3 10^3/uL (1.5-6.6); NEUTROPHILS % (AUTO) 54.6 %; PLT - PLATELET COUNT 313 10^3/uL (130-450); RED BLOOD COUNT 4.48 10^6/uL (4.20-5.40); RED CELL DISTRIBUTION WIDTH 12.9 % (12.0-15.0)
[2022-01-14 18:00] LABS: CALCIUM 9.5 mg/dL (8.5-10.3); CREATININE 0.8 mg/dL (0.4-1.0)
[2022-01-14 20:20] LABS: ESTIMATED AVERAGE GLUCOSE 166 mg/dL (70-100); HEMOGLOBIN A1c% 7.4 % (4.27-6.07)
[2022-01-17 19:07] LABS: TRYPTASE 4.4 ug/L (2.2-13.2)
== END 2022-01-14 13:36 | disposition home or self-care (01) ==
LOC: LAB.N 13:35
PROVIDERS: ATTEND Pediatrics
DX: J32.9 Chronic sinusitis, unspecified (principal); T63.451D Toxic effect of venom of hornets, accidental (unintentional), subsequent encounter; K20.0 Eosinophilic esophagitis; E11.9 Type 2 diabetes mellitus without complications
CPT/HCPCS: 36415; 80048; 81599; 82784; 82785; 83036; 83520; 85025; 86003; 86317

== ENCOUNTER 2022-09-04 09:38 | Outpatient (CLI) | payer MEDICARE, OTHER ==
[2022-09-04 19:02] LABS: ESTIMATED AVERAGE GLUCOSE 171 mg/dL (70-100); HEMOGLOBIN A1c% 7.6 % (4.27-6.07)
[2022-09-04 19:24] LABS: ALBUMIN 3.8 g/dL (3.2-5.5); ALBUMIN/GLOBULIN RATIO 1.2 (1.0-2.2); ALKALINE PHOSPHATASE 81 IU/L (42-121); ALT ALANINE AMINOTRANSFERASE 58 IU/L (10-60); AST ASPARTATE AMINOTRANSFERASE 40 IU/L (10-42); BILIRUBIN,TOTAL 0.5 mg/dL (0.2-1.0); BUN - BLOOD UREA NITROGEN 16 mg/dL (6-20); CALCIUM 9.1 mg/dL (8.5-10.3); CARBON DIOXIDE - CO2 27 mmol/L (21-32); CHLORIDE 105 mmol/L (101-111); CHOL/HDL RATIO 3.2 (<4.4); CHOLESTEROL 202 mg/dL; CREATININE 0.7 mg/dL (0.4-1.0); GFR - MDRD 82 (>89); GLUCOSE 134 mg/dL (70-100); HDL CHOLESTEROL 64 mg/dL; LDL CHOLESTEROL,CALCULATED 112 mg/dL; LDL/HDL RATIO 1.8 (<4.4); POTASSIUM 4.3 mmol/L (3.5-5.0); SODIUM 138 mmol/L (135-145); TRIGLYCERIDES 129 mg/dL; VLDL CHOLESTEROL 26 mg/dL
== END 2022-09-04 09:39 | disposition home or self-care (01) ==
LOC: LAB.N 09:38
PROVIDERS: ATTEND Physician Assistant Medical
DX: E11.9 Type 2 diabetes mellitus without complications (principal)
CPT/HCPCS: 36415; 80053; 80061; 83036; 83721

== ENCOUNTER 2022-10-26 12:32 | Outpatient (CLI) | payer MEDICARE, OTHER ==
[2022-10-26 18:17] LABS: THYROID STIMULATING HORMONE 1.63 uIU/mL (0.34-5.60)
== END 2022-10-26 12:33 | disposition home or self-care (01) ==
LOC: LAB.N 12:32
PROVIDERS: ATTEND Physician Assistant Medical
DX: E03.9 Hypothyroidism, unspecified (principal)
CPT/HCPCS: 36415; 84443

== ENCOUNTER 2023-04-01 08:26 | Outpatient (CLI) | payer MEDICARE ==
[2023-04-01 12:19] LABS: BASOPHILS % (AUTO) 0.3 %; EOSINOPHILS # (AUTO) 0.3 10^3/uL (0.0-0.7); EOSINOPHILS % (AUTO) 4.5 %; HCT - HEMATOCRIT 42.6 % (37.0-47.0); HGB - HEMOGLOBIN 13.9 g/dL (12.0-16.0); LYMPHOCYTES # (AUTO) 2.2 10^3/uL (1.5-3.5); LYMPHOCYTES % (AUTO) 36.6 %; MEAN CORPUSCULAR HGB CONC 32.6 g/dL (32.0-36.0); MEAN CORPUSCULAR VOLUME 94.9 fL (81.0-99.0); MEAN PLATELET VOLUME 11.1 fL (7.9-10.8); MONOCYTES # (AUTO) 0.5 10^3/uL (0.0-1.0); NEUTROPHILS % (AUTO) 50.4 %; PLT - PLATELET COUNT 291 10^3/uL (130-450); RED BLOOD COUNT 4.49 10^6/uL (4.20-5.40); RED CELL DISTRIBUTION WIDTH 12.5 % (12.0-15.0)
[2023-04-01 12:27] LABS: ESTIMATED AVERAGE GLUCOSE 180 mg/dL (70-100); HEMOGLOBIN A1c% 7.9 % (4.27-6.07)
[2023-04-01 12:35] LABS: CALCIUM 9.7 mg/dL (8.5-10.3); CREATININE 0.9 mg/dL (0.6-1.3); POTASSIUM 4.2 mmol/L (3.5-4.5)
== END 2023-04-01 08:27 | disposition home or self-care (01) ==
LOC: LAB.N 08:26
PROVIDERS: ATTEND Physician Assistant Medical
DX: E11.9 Type 2 diabetes mellitus without complications (principal); K21.9 Gastro-esophageal reflux disease without esophagitis
CPT/HCPCS: 36415; 80048; 83036; 85025

== ENCOUNTER 2023-06-06 09:23 | Outpatient (CLI) | payer MEDICARE ==
--- NOTE | 2023-06-06 13:20 | CT Report ---
PROCEDURE: SINUS SCREENING WO INDICATIONS: CHRONIC SINUSITIS TECHNIQUE: Noncontrast 3.0 mm axial images acquired from the frontal sinuses to the mid-sella, with coronal and sagittal reformats. For radiation dose reduction, the following was used: automated exposure control , adjustment of mA and/or kV according to patient size. COMPARISON: None. FINDINGS: Image quality: Excellent. Maxillary Sinuses: No bony remodeling or destruction. Near complete opacification of the left maxill tulio sinus with hyperostosis of the left maxillary sinus wall. Some of the material in the left maxill tulio sinus is high in attenuation Ethmoid Air Cells: No bony remodeling or destruction. Sinuses are clear. Sphenoid Sinuses: No bony remodeling or destruction. Sinuses are clear. Frontal Sinuses: No bony remodeling or destruction. Sinuses are clear. Ostiomeatal Complexes: Ostiomeatal complexes are patent. Small bilateral Kelly cells. Miscellaneous: Visualized intra-orbital contents are normal. Bilateral lens replacements. Bilateral addie bullosa. Mild left nasal septal deviation. Atherosclerotic vascular calcifications intracran ially. IMPRESSION: Near complete opacification of the left maxillary sinus with some higher attenuation material and hyp erostosis of the savage, may represent chronic fungal sinusitis. Other paranasal sinuses are clear. Reviewed by: Osman Tapia MD on 06/06/2023 1:19 PM PST Approved by: Osman Tapia MD on 06/06/2023 1:19 PM PST Station ID: [id number]
== END 2023-06-06 09:24 | disposition home or self-care (01) ==
LOC: DI 09:23
PROVIDERS: ATTEND Physician Assistant Medical
DX: J32.9 Chronic sinusitis, unspecified (principal)

== ENCOUNTER 2023-07-23 12:41 | Outpatient (CLI) | payer MEDICARE ==
[2023-07-23 19:36] LABS: ALBUMIN 4.1 g/dL (3.2-5.5); ALBUMIN/GLOBULIN RATIO 1.4 (1.0-2.2); ALKALINE PHOSPHATASE 101 IU/L (42-121); ALT ALANINE AMINOTRANSFERASE 68 IU/L (10-60); AST ASPARTATE AMINOTRANSFERASE 41 IU/L (10-42); BILIRUBIN,TOTAL 0.5 mg/dL (0.2-1.0); BUN - BLOOD UREA NITROGEN 15 mg/dL (6-20); CALCIUM 9.6 mg/dL (8.5-10.3); CARBON DIOXIDE - CO2 30 mmol/L (21-32); CHLORIDE 104 mmol/L (101-111); CHOL/HDL RATIO 3.7 (<4.4); CHOLESTEROL 221 mg/dL; CREATININE 0.9 mg/dL (0.6-1.3); GFR - MDRD 61 (>89); GLUCOSE 181 mg/dL (74-104); HDL CHOLESTEROL 59 mg/dL; LDL CHOLESTEROL,CALCULATED 128 mg/dL; LDL/HDL RATIO 2.2 (<4.4); POTASSIUM 4.4 mmol/L (3.5-4.5); SODIUM 140 mmol/L (135-145); TOTAL PROTEIN 7.1 g/dL (6.4-8.9); TRIGLYCERIDES 168 mg/dL (48-352); VLDL CHOLESTEROL 34 mg/dL
[2023-07-23 19:43] LABS: THYROID STIMULATING HORMONE 2.13 uIU/mL (0.34-5.60)
[2023-07-23 21:01] LABS: ESTIMATED AVERAGE GLUCOSE 186 mg/dL (70-100); HEMOGLOBIN A1c% 8.1 % (4.27-6.07)
== END 2023-07-23 12:42 | disposition home or self-care (01) ==
LOC: LAB.N 12:41
PROVIDERS: ATTEND Physician Assistant Medical
DX: E11.9 Type 2 diabetes mellitus without complications (principal); E03.9 Hypothyroidism, unspecified
CPT/HCPCS: 36415; 80053; 80061; 83036; 83721; 84443

== ENCOUNTER 2023-08-17 14:18 | Outpatient (CLI) | payer MEDICARE ==
--- NOTE | 2023-08-18 15:56 | Mammography Report ---
BILATERAL DIGITAL SCREENING MAMMOGRAM 3D/2D: 08/17/2023 CLINICAL: Routine screening. Comparison is made to exams dated: 01/29/2021 mammogram, 01/13/2021 mammogram, 12/19/2019 mammogram, 09/15 mammogram, and 09/13/2014 mammogram - [facility]. Both breasts are almost entirely fatty (category a/<25% glandular tissue). There is a new 1.1 cm oval high density focal asymmetry in the left breast at 6 o'clock middle depth. No other significant masses, calcifications, or other findings are seen in either breast. IMPRESSION: INCOMPLETE: NEEDS ADDITIONAL IMAGING EVALUATION The new 1.1 cm oval high density focal asymmetry in the left breast is indeterminate. Additional vie ws with possible ultrasound are recommended. Based on the Tyrer Cuzick model (a risk assessment model) the patient's lifetime risk is 2.4% and her 10 year risk is 2.0%. According to the ACR, ACS, and NCCN guidelines, an annual breast MRI exam aisha g with mammogram is recommended if the patients lifetime risk is 20% or greater. This exam was interpreted at Station ID: [id number]. NOTE: For mammograms, a report in lay terms will be sent to the patient. Approximately 15% of breast malignancies will not be visualized mammographically. In the management of a palpable breast mass, a negative mammogram must not discourage biopsy of a clinically suspicious lesion. Electronically Signed By: Rasta Mendez M.D. aty/:08/17/2023 18:28:29 ACR BI-RADS Category 0: Incomplete 3340F PARENCHYMAL PATTERN: (F) - The breast(s) demonstrate(s) diffuse fatty replacement. BI-RADS CATEGORY: (0) - 0 Mammo and US [id number] Immediate follow-up LATERALITY: (L)
== END 2023-08-17 14:19 | disposition home or self-care (01) ==
LOC: DI 14:18
DX: Z12.31 Encounter for screening mammogram for malignant neoplasm of breast (principal); R92.8 Other abnormal and inconclusive findings on diagnostic imaging of breast

== ENCOUNTER 2023-09-09 09:04 | Outpatient (CLI) | payer MEDICARE ==
--- NOTE | 2023-09-12 08:35 | Mammography Report ---
UNILATERAL LEFT DIGITAL DIAGNOSTIC MAMMOGRAM 3D/2D WITH SPOT COMPRESSION: 09/09/2023 CLINICAL: Patient returns today to evaluate a focal asymmetry in the left breast. Comparison is made to exams dated: 08/17/2023 mammogram, 01/29/2021 mammogram, 01/13/2021 mammogram, 12/19/2019 mammogram, 10/03/2019 mammogram, and 09/13/2014 mammogram - [facility]. There are scattered areas of fibroglandular density in the left breast (category b / 25%-50% glandula r tissue). There is a new 1.1 cm oval focal asymmetry in the left breast at 6 o'clock middle depth. No other significant masses or calcifications are seen in the breast. IMPRESSION: INCOMPLETE: NEEDS ADDITIONAL IMAGING EVALUATION The new 1.1 cm oval focal asymmetry in the left breast is indeterminate. A targeted ultrasound is recommended and will immediately follow. Based on the Tyrer Cuzick model (a risk assessment model) the patient's lifetime risk is 3.7% and her 10 year risk is 3.0%. According to the ACR, ACS, and NCCN guidelines, an annual breast MRI exam aisha g with mammogram is recommended if the patient's lifetime risk is 20% or greater. This exam was interpreted at Station ID: [id number]. NOTE: For mammograms, a report in lay terms will be sent to the patient. Approximately 15% of breast malignancies will not be visualized mammographically. In the management of a palpable breast mass, a negative mammogram must not discourage biopsy of a clinically suspicious lesion. Electronically Signed By: Oscar Dill M.D. slc/:09/09/2023 10:16:38 ACR BI-RADS Category 0: Incomplete 3340F PARENCHYMAL PATTERN: (A) - The breast(s) demonstrate(s) scattered fibroglandular densities. BI-RADS CATEGORY: (0) - 0 Ultrasound [id number] Immediate follow-up LATERALITY: (B)
--- NOTE | 2023-09-12 08:35 | Ultrasound Report ---
LIMITED ULTRASOUND OF LEFT BREAST AND AXILLA: 09/09/2023 CLINICAL: Patient returns today to evaluate a focal asymmetry in the left breast. Comparison is made to exams dated: 09/09/2023 mammogram, 08/17/2023 mammogram, 01/29/2021 mammogram, mammogram, 12/19/2019 mammogram, and 10/03/2019 mammogram - [facility]. Color flow and real-time ultrasound of the left breast 6 o'clock, and axilla regions were performed. Beltran scale images of the real-time examination were reviewed. There is a new 1.2 cm x 0.9 cm x 0.8 cm oval mass in the left breast at 6 o'clock middle depth 5 cm f rom the nipple. This oval mass is hypoechoic. No significant abnormalities were seen sonographically in the left axilla. IMPRESSION: SUSPICIOUS OF MALIGNANCY The new 1.2 cm x 0.9 cm x 0.8 cm oval mass in the left breast has a differential diagnosis of a fibro adenoma and is at a moderate suspicion for malignancy. An ultrasound guided biopsy is recommended. Exam findings were discussed with the patient by Dr. Lugo. This exam was interpreted at Station ID: [id number]. Electronically Signed By: Oscar Dill M.D. [facility] [place]/:09/09/2023 11:43:33 Ultrasound BI-RADS: 4b Moderate suspicion of malignancy BI-RADS CATEGORY: (4b) - Mod Susp Biopsy [id number] Immediate follow-up LATERALITY: (L)
== END 2023-09-09 09:05 | disposition home or self-care (01) ==
LOC: DI 09:04
PROVIDERS: ATTEND Physician Assistant Medical
DX: R92.8 Other abnormal and inconclusive findings on diagnostic imaging of breast (principal); N63.25 Unspecified lump in the left breast, overlapping quadrants; R92.322 Mammographic fibroglandular density, left breast

== ENCOUNTER 2023-09-16 09:55 | Outpatient (CLI) | payer MEDICARE ==
[2023-09-16] MEDS ORDERED: LIDOCAINE-MPF 1% 5 ML VIAL ONE (11:10)
[2023-09-16] MEDS: LIDOCAINE-MPF 1% 5 ML VIAL TD ONE (14:49)
--- NOTE | 2023-09-19 10:13 | Mammography Report ---
UNILATERAL LEFT DIGITAL DIAGNOSTIC MAMMOGRAM - LEFT BREAST POST-PROCEDURE IMAGING FOR MARKER PLACEMEN CLINICAL: Post left breast ultrasound biopsy clip placement imaging. Comparison is made to exams dated: 09/09/2023 mammogram, 08/17/2023 mammogram, 09/09/2023 ultrasound, a nd 09/16/2023 ultrasound biopsy - [facility]. There are scattered areas of fibroglandular density in the left breast (category b / 25%-50% glandula r tissue). There is a marker clip in the appropriate position in the left breast at 6 o'clock middle depth. Thi s marker clip placement is at the biopsy site. IMPRESSION: POST PROCEDURE MAMMOGRAM FOR MARKER PLACEMENT There was a successful marker clip placement in the left breast middle depth. Based on the Tyrer Cuzick model (a risk assessment model) the patient's lifetime risk is 3.4% and her 10 year risk is 3.1%. According to the ACR, ACS, and NCCN guidelines, an annual breast MRI exam aisha g with mammogram is recommended if the patient's lifetime risk is 20% or greater. This exam was interpreted at Station ID: [id number]. NOTE: For mammograms, a report in lay terms will be sent to the patient. Approximately 15% of breast malignancies will not be visualized mammographically. In the management of a palpable breast mass, a negative mammogram must not discourage biopsy of a clinically suspicious lesion. Electronically Signed By: Garry anne/paul:09/16/2023 20:17:06 ACR BI-RADS Category Post-procedure mammogram for marker placement PARENCHYMAL PATTERN: (A) - The breast(s) demonstrate(s) scattered fibroglandular densities. BI-RADS CATEGORY: () - Unspecified - other recall n/a LATERALITY: (B)
--- NOTE | 2023-09-22 16:35 | Ultrasound Report ---
ULTRASOUND GUIDED BIOPSY LEFT BREAST USING VACUUM DEVICE WITH MARKING DEVICE INSERTED AND POST DIGITA L MAMMOGRAPHIC IMAGIN09/16/2023 CLINICAL: Left breast mass. PATIENT CONSENT: Risks (minor bleeding, infection, vasovagal reaction and repeat procedure), benefits and alternatives were explained to the patient and written informed consent was obtained. Correlation is made to exams dated: 09/09/2023 ultrasound, 09/09/2023 mammogram, and 08/17/2023 mammogr [facility]. An ultrasound guided biopsy using real-time ultrasound was performed for the 1.2 cm x 0.9 cm x 0.8 cm mass located in the left breast at 6 o'clock middle depth 5 cm from the nipple. This was described on the previous mammography and ultrasound reports. The skin was prepped in the usual manner. Local anesthetic was administered to the access site. A skin twyla was made in the breast. The abnormalit y was approached from the lateral aspect. A 13 gauge biopsy needle was placed adjacent to the abnorm ality under ultrasound guidance. Once the needle was documented to be in the correct location, four specimens were obtained using the Mammotome biopsy system. A clip was inserted into the biopsy cavit y. A sterile dressing was applied to the access site. Post procedure digital mammographic imaging d emonstrates the location device at the targeted area. The specimens were sent to the laboratory for pathological analysis. IMPRESSION: ULTRASOUND GUIDED BIOPSY MALIGNANT Ultrasound guided biopsy of the 1.2 cm x 0.9 cm x 0.8 cm mass in the left breast at 6 o'clock middle depth 5 cm from the nipple was successful with no apparent post procedure complications. Pathology indicates malignant invasive ductal carcinoma (IDC). Pathology results are concordant with imaging findings. A surgical/oncologic consultation is recommended. This exam was interpreted at Station ID: [id number]. Garry Hoff M.D., PH.D yony anne/:09/22/2023 08:20:26 BI-RADS CATEGORY: () - Unspecified - other recall n/a LATERALITY: (B)
== END 2023-09-16 09:56 | disposition home or self-care (01) ==
LOC: DI 09:55
PROVIDERS: ATTEND Physician Assistant Medical
DX: R92.322 Mammographic fibroglandular density, left breast (principal); C50.812 Malignant neoplasm of overlapping sites of left female breast; Z17.0 Estrogen receptor positive status [ER+]
CPT/HCPCS: 19083

== ENCOUNTER 2023-10-21 12:03 | Outpatient (CLI) | payer MEDICARE ==
--- NOTE | 2023-10-24 09:20 | Ultrasound Report ---
LIMITED ULTRASOUND OF LEFT BREAST: 10/21/2023 CLINICAL: Patient returns today to evaluate a focal asymmetry in the left breast. Comparison is made to exams dated: 10/07/2023 breast MRI - [facility], 09/16/2023 ultrasound biopsy, 09/16/2023 mammogram, 09/09/2023 ultrasound, 09/09/2023 mammogram, and 08/17/2023 mammogram - [facility]. Color flow and real-time ultrasound of the left breast 12 o'clock region were performed. Beltran scale images of the real-time examination were reviewed. There is a 0.4 cm x 0.5 cm x 0.3 cm oval mass in the left breast at 12 o'clock anterior depth 1 cm fr om the nipple. This oval mass is hypoechoic with fatty hilum and no posterior acoustic shadowing or enhancement. This correlates with breast MRI findings. Color flow imaging demonstrates that there i s no vascularity present. IMPRESSION: SUSPICIOUS OF MALIGNANCY The 0.4 cm x 0.5 cm x 0.3 cm oval mass in the left breast has a differential diagnosis of a lymph nod e, carcinoma, or a fibroadenoma and given presence of known malignancy in the ipsilateral breast, thi s is suspicious of malignancy. An ultrasound guided biopsy is recommended. Findings and recommendat ions were conveyed to the patient at time of exam. This exam was interpreted at Station ID: [id number]. Electronically Signed By: Yari spencer/:10/21/2023 13:04:44 Ultrasound BI-RADS: 4 Suspicious for malignancy BI-RADS CATEGORY: (4) - 4 Biopsy [id number] Immediate follow-up LATERALITY: (L)
== END 2023-10-21 12:04 | disposition home or self-care (01) ==
LOC: DI 12:03
PROVIDERS: ATTEND Surgery
DX: R92.8 Other abnormal and inconclusive findings on diagnostic imaging of breast (principal)

== ENCOUNTER 2023-10-25 09:24 | Outpatient (CLI) | payer MEDICARE ==
[2023-10-25] MEDS ORDERED: LIDOCAINE 1%-EPI 1:100000 20 ML MDV ONE (09:36)
[2023-10-25] MEDS ORDERED: LIDOCAINE-MPF 1% 5 ML VIAL ONE (09:36)
[2023-10-25] MEDS: LIDOCAINE-MPF 1% 5 ML VIAL TD ONE (11:10)
[2023-10-25] MEDS: LIDOCAINE 1%-EPI 1:100000 20 ML MDV SUBQ ONE (11:11)
--- NOTE | 2023-10-26 09:08 | Mammography Report ---
UNILATERAL LEFT DIGITAL DIAGNOSTIC MAMMOGRAM - LEFT BREAST POST-PROCEDURE IMAGING FOR MARKER PLACEMEN CLINICAL: Post left breast ultrasound biopsy clip placement imaging. Three sites. Comparison is made to exams dated: 10/21/2023 ultrasound, 09/16/2023 ultrasound biopsy, 09/16/2023 mammogr am, 09/09/2023 ultrasound, 09/09/2023 mammogram, and 08/17/2023 mammogram - [facility] . There are scattered areas of fibroglandular density in the left breast (category b / 25%-50% glandula r tissue). There is a marker clip in the appropriate position in the left breast at 12 o'clock anterior depth. This marker clip placement is at the biopsy site. IMPRESSION: POST PROCEDURE MAMMOGRAM FOR MARKER PLACEMENT There was a successful marker clip placement in the left breast anterior depth. This exam was interpreted at Station ID: [id number]. NOTE: For mammograms, a report in lay terms will be sent to the patient. Approximately 15% of breast malignancies will not be visualized mammographically. In the management of a palpable breast mass, a negative mammogram must not discourage biopsy of a clinically suspicious lesion. Electronically Signed By: Chrissy Mena M.D. lk/:10/25/2023 13:38:55 ACR BI-RADS Category Post-procedure mammogram for marker placement PARENCHYMAL PATTERN: (A) - The breast(s) demonstrate(s) scattered fibroglandular densities. BI-RADS CATEGORY: () - Unspecified - other recall n/a LATERALITY: (B)
--- NOTE | 2023-10-27 10:27 | Ultrasound Report ---
ULTRASOUND GUIDED BIOPSY LEFT BREAST USING VACUUM DEVICE WITH MARKING DEVICE INSERTED AND POST DIGITA L MAMMOGRAPHIC AND ULTRASOUND IMAGIN10/25/2023 CLINICAL: Left breast mass. PATIENT CONSENT: Risks (minor bleeding, infection, vasovagal reaction and repeat procedure), benefits and alternatives were explained to the patient and written informed consent was obtained. Correlation is made to exams dated: 10/21/2023 ultrasound - [facility], 10/07/2023 [facility], 09/16/2023 ultrasound biopsy, 09/16/2023 mammogram, 09/09/2023 ultrasound, and mammogram - [facility]. An ultrasound guided biopsy using real-time ultrasound was performed for the 0.4 cm x 0.5 cm x 0.3 cm irregular shaped mass located in the left breast at 12 o'clock anterior depth 1 cm from the nipple. The skin was prepped in the usual manner. Local anesthetic was administered to the access site. A small incision was made in the breast. The abnormality was approached from the lateral aspect. A 13 gauge biopsy needle was placed adjacent to the abnormality under ultrasound guidance. Once the need le was documented to be in the correct location, four specimens were obtained using the Mammotome bio psy system. The patient received additional local anesthetic during the procedure. A clip was inser sara into the biopsy cavity. A sterile dressing was applied to the access site. Post procedure digit al mammographic and ultrasound imaging demonstrates the location device at the targeted area. The sp ecimens were sent to the laboratory for pathological analysis. IMPRESSION: ULTRASOUND GUIDED BIOPSY BENIGN Ultrasound guided biopsy of the 0.4 cm x 0.5 cm x 0.3 cm mass in the left breast at 12 o'clock anteri or depth 1 cm from the nipple was successful. Pathology indicates benign fibrocystic changes with fl orid usual ductal hyperplasia. Pathology results are concordant with imaging findings. A follow-up left mammogram and a left ultrasound in 6 months is recommended to demonstrate stability. This exam was interpreted at Station ID: [id number]. Chrissy bustillos,aty/:10/27/2023 09:26:01 BI-RADS CATEGORY: () - Mammo and [place] [id number] 6 month follow-up LATERALITY: (L)
== END 2023-10-25 09:25 | disposition home or self-care (01) ==
LOC: DI 09:24
PROVIDERS: ATTEND Surgery
DX: N60.12 Diffuse cystic mastopathy of left breast (principal); R92.322 Mammographic fibroglandular density, left breast
CPT/HCPCS: 19083

== ENCOUNTER 2023-11-07 06:53 | Day surgery (SDC) | payer MEDICARE ==
[2023-11-07] MEDS: LACTATED RINGERS 1,000 ML IV ONE ×2 (06:59→15:18)
[2023-11-07] MEDS ORDERED: ceFAZolin 2 GM VIAL ONE (07:14)
[2023-11-07] MEDS ORDERED: LIDOCAINE-MPF 1% 5 ML VIAL ONE (07:40)
[2023-11-07] MEDS ORDERED: LIDOCAINE 1%-EPI 1:100000 20 ML MDV ONE ×3 (07:41→11:12)
[2023-11-07] MEDS: LIDOCAINE-MPF 1% 5 ML VIAL TD ONE (09:06)
[2023-11-07] MEDS ORDERED: fentaNYL 100 MCG/2 ML VIAL ONE ×2 (09:23→15:30)
[2023-11-07] MEDS ORDERED: PROPOFOL 200 MG/20 ML VIAL IVP ONE (09:23)
--- NOTE | 2023-11-07 10:27 | ANESTHESIA ---
Pre-Anesthesia VS, & Labs - Diagnosis left breast invasive ductal carcinoma - Procedure left breast wire localized lumpectomy Vital Signs: Temp Pulse Resp BP Pulse Ox O2 Flow Rate 36.3 C L 65 16 126/64 97 0 11/07/23 07:44 11/07/23 07:44 11/07/23 07:44 11/07/23 07:44 11/07/23 07:44 11/07/23 07:44 Height: 5 ft 5 in Weight (kg): 97 kg Body Mass Index: 35.6 BMI Classification: Obese - NPO >8 hours - Is Patient ?: No - Lab Results Current Lab Results: Laboratory Tests 11/07/23 07:53: POC Whole Bld Glucose 95 Lab results reviewed: Yes Home Medications and Allergies Home Medications: Ambulatory Orders Acetaminophen [Pain Relief] 650 mg PO PRN PRN 10/31/23 Cetirizine HCl [Allergy] 10 mg PO DAILY 10/31/23 Glimepiride [Amaryl] 2 mg PO DAILY 10/31/23 Glucose 6 525 mg PO QPM 10/31/23 Magnesium Citrate and Oxide [Magnesium] 500 mg PO DAILY 10/31/23 Magnesium Glycinate 480 mg PO DAILY 10/31/23 Pantoprazole [Protonix] 40 mg PO DAILY 10/31/23 Ubidecarenone [Co Q-10] 200 mg PO DAILY 10/31/23 Vitamin B Complex Vit C No.3 [B Complex with Vitamin C] 1 each PO DAILY 10/31/23 Telmisartan [Micardis] 40 mg PO DAILY 01/25/13 Ezetimibe [Zetia] 1 tab ORAL DAILY 03/17/21 Cholecalciferol (Vitamin D3) [Vitamin D3] 75 mcg PO DAILY 10/07/21 Levothyroxine [Synthroid] 50 mcg PO QDAC 10/07/21 Multivitamin 1 each PO DAILY 10/07/21 Turmeric 500 mg PO DAILY 10/07/21 ALPRAZolam [Xanax] 0.25 mg PO ONCE PRN 04/28/23 EPINEPHrine [Epipen] 0.3 mg IM ONCE 04/28/23 Acetaminophen [Pain Relief] 650 mg PO PRN PRN 10/31/23 Cetirizine HCl [Allergy] 10 mg PO DAILY 10/31/23 Glimepiride [Amaryl] 2 mg PO DAILY 10/31/23 Glucose 6 525 mg PO QPM 10/31/23 Magnesium Citrate and Oxide [Magnesium] 500 mg PO DAILY 10/31/23 Magnesium Glycinate 480 mg PO DAILY 10/31/23 Pantoprazole [Protonix] 40 mg PO DAILY 10/31/23 Ubidecarenone [Co Q-10] 200 mg PO DAILY 10/31/23 Vitamin B Complex Vit C No.3 [B Complex with Vitamin C] 1 each PO DAILY 10/31/23 Allergies/Adverse Reactions: Allergies Allergy/AdvReac Type Severity Reaction Status Date / Time codeine [Codeine] Allergy Severe unknown Verified 11/01/23 15:44 iodine Allergy Severe unknown Verified 11/01/23 15:44 cat dander Allergy Respiratory Verified 11/01/23 15:44 hornet venom Allergy Anaphylaxis Verified 11/01/23 15:44 bee stings Allergy Unknown Uncoded 11/01/23 15:44 statins Allergy Unknown Uncoded 11/01/23 15:44 Anes History & Medical History - Anesthetic History Anesthesia Complications: reports: No previous complications - Medical History Cardiovascular: reports: Hypertension, High cholesterol Pulmonary: reports: None Gastrointestinal: reports: GERD, Hemorrhoids Urinary: reports: None Musculoskeletal: reports: Osteoarthritis Endocrine/Autoimmune: reports: Type 2 diabetes, HyPOthyroidism Skin: reports: Other Smoking Status: Never smoker Psychosocial: reports: No issues indicated History of Cancer?: Yes (breast cancer) - Surgical History General: reports: Colonoscopy, EGD Eyes Ears Nose Throat (EENT): reports: Cataracts Gynecologic: reports: section Orthopedic: reports: Carpal Tunnel surgery Exam General: Alert, Oriented x3, Cooperative, No acute distress Dental: WNL Mouth Openin Fingerbreadth Neck Mobility: Normal Mallampati classification: II Thyromental Distance: 4-6 cm Mental/Cognitive Status: Alert/Oriented X3, Normal for patient Plan Anesthesia Type: General Consent for Procedure(s) Verified and Reviewed: Yes Code Status: Attempt Resuscitation ASA classification: 3-Severe systemic disease Is this case an emergency?: No
[2023-11-07] MEDS ORDERED: BUPIVACAINE 0.5% PF 10 ML VIAL ONE (10:55)
[2023-11-07] MEDS ORDERED: MORPHINE 2 MG/ML CARPUJECT IVP PRN (11:13)
[2023-11-07] MEDS ORDERED: ATROPINE ABBOJECT 1 MG/10 ML SYRINGE IVP PRN (11:13)
[2023-11-07] MEDS ORDERED: ONDANSETRON 4 MG/2 ML VIAL IVP PRN ×2 (11:13→15:13)
[2023-11-07] MEDS ORDERED: NALOXONE 0.4 MG/ML VIAL IVP PRN (11:13)
[2023-11-07] MEDS: ACETAMINOPHEN 500 MG TABLET PO ONE (11:19)
[2023-11-07] MEDS ORDERED: LACTATED RINGERS 1,000 ML IV SCH (12:00)
[2023-11-07] MEDS ORDERED: ONDANSETRON 4 MG/2 ML VIAL ONE (12:30)
[2023-11-07] MEDS: BUPIVACAINE 0.5% PF 10 ML VIAL IM ONE ×2 (14:29)
[2023-11-07] MEDS: LIDOCAINE 1%-EPI 1:100000 20 ML MDV SUBQ ONE ×2 (14:30)
[2023-11-07] MEDS ORDERED: DEXAMETHASONE 4 MG/ML VIAL ONE (14:34)
[2023-11-07] MEDS ORDERED: ACETAMINOPHEN 500 MG TABLET PO PRN (15:13)
[2023-11-07] MEDS ORDERED: HYDROmorphone 0.5 MG/0.5 ML SYRINGE IVP PRN (15:13)
--- NOTE | 2023-11-07 15:22 | OPERATIVE REPORT ---
Operative Report - General Procedure Date: 11/07/23 Planned Procedure: left lumpectomy with wire localization Pre-Op Diagnosis: L IDC Procedure Performed: left lumpectomy with wire localization Post Op Diagnosis: L IDC - Procedure Note Primary Surgeon: Dr. Marce Mckoy Anesthesia Provider: Gisselle Galvna CRNA Anesthesia Technique: General LMA, Local Pathology: 1.left lumpectomy oriented short superior, long lateral, double anterior Estimated Blood Loss (mL): 10 Drain/Tube Type: Oz Rogers round drain (left breast) Indications: The patient had abnormal findings on a mammogram leading to additional workup including a biopsy which revealed invasive ductal carcinoma of the left breast. She was seen and evaluated in clinic where we discussed the risks, benefits, and alternatives of lumpectomy. After discussion with medical oncology, due to the patient's age, sentinel lymph node biopsy was felt not to be necessary as it would not change her treatment plan. I discussed the risks, benefits, and alternatives of lumpectomy including bleeding, infection, damage to surrounding structures, positive margins requiring reexcision, and the possible need for further surgeries or procedures with the patient preoperatively. She voiced understanding, her questions were answered, and she wished to proceed. A consent was signed by the patient prior to surgery. Findings: 1.Left lumpectomy, oriented short superior, long lateral, double anterior Complications: None - Other Other Information/Narrative: The patient was taken to the operating room and placed in the supine position. Preop antibiotics were given. ERAS medications were given. The patient was prepped and draped in the usual sterile fashion. A preop surgical timeout was performed. Attention was turned to the patient's left breast. An incision was made which incorporated the wire, following the patient's skin folds, at the 12 o'clock position, N + 4. Skin flaps were raised superiorly and inferiorly to the incision. The dissection was carried down to the thick part of the wire using electrocautery. At this point, serrated scissors were used to perform a lumpectomy staying approximately 1 cm away from the wire medially, laterally, anteriorly, and posteriorly. Based on the positioning of the wire, I also went approximately 2 and half centimeters inferior. The lumpectomy specimen was removed and oriented with suture on the back table. The specimen was sent to mammography and the biopsy clip was confirmed to be within the specimen.The edges of the lumpectomy cavity were inspected and there were no palpable abnormalities. Hemostasis was confirmed. The lumpectomy cavity was irrigated with warm normal saline. Clips were placed in the superior, inferior, medial, lateral, anterior, and posterior margins of the lumpectomy cavity. A 7 Barbadian NADIA drain was placed in the lumpectomy cavity due to its size and location. This was sewn into place using a 3-0 nylon suture. The deep dermal tissues were closed with 3-0 Vicryl in an interrupted fashion. The skin was closed with 4-0 Monocryl in a running subcuticular fashion. The patient tolerated the procedure well. There were no complications. Synoptic Breast SNB - Ruby Node Biopsy Operation performed with curative intent: Yes Tracer(s) used to identify sentinel nodes in the upfront surgery (non- neoadjuvant) setting (select all that apply): Other (with explanation) (After consultation with medical oncology, no sentinel lymph node biopsy was performed as it was felt not likely to change the patient's subsequent care due to her age and comorbidities.), N/A Tracer(s) used to identify sentinel nodes in the neoadjuvant setting (select all that apply): N/A All nodes (colored or non-colored) present at the end of a dye-filled lymphatic channel were removed: N/A All significantly radioactive nodes were removed: N/A All palpably suspicious nodes were removed: N/A Biopsy-proven positive nodes marked with clips prior to chemotherapy were identified and removed: N/A
[2023-11-07] MEDS: fentaNYL 100 MCG/2 ML VIAL IVP PRN (15:32)
--- NOTE | 2023-11-07 15:38 | ANESTHESIA POST OP EVALUATION ---
Anesthesia Post Eval - Post Anesthesia Eval Vitals: Last Vital Signs Temp 36.2 C L 11/07/23 15:30 Pulse 59 L 11/07/23 15:30 Resp 15 11/07/23 15:30 BP 140/74 H 11/07/23 15:30 Pulse Ox 99 11/07/23 15:30 O2 Flow Rate 0 11/07/23 07:44 CV Function Including HR & BP: Stable Pain Control: Satisfactory Nausea & Vomiting: Negative Mental Status: Baseline Respiratory Status: Airway Patent Hydration Status: Satisfactory Anesthesia Complications: None
[2023-11-07] MEDS ORDERED: HYDROmorphone 0.5 MG/0.5 ML SYRINGE ONE (15:53)
[2023-11-07] MEDS: HYDROmorphone 0.5 MG/0.5 ML SYRINGE IVP PRN (15:55)
[2023-11-07 16:18] VITALS: BP 147/62; O2SAT 93
--- NOTE | 2023-11-09 10:00 | Mammography Report ---
SPECIMEN: 11/07/2023 CLINICAL: Left breast specimen. Correlation is made to exams dated: 11/07/2023 localization, 10/25/2023 ultrasound biopsy, 10/25/2023 ko mogram, 10/21/2023 ultrasound - [facility], and 10/07/2023 breast MRI - [facility]. Left breast lumpectomy specimen contains the biopsy clip and the localization wire. IMPRESSION: SPECIMEN Left breast lumpectomy specimen contains the biopsy clip. This exam was interpreted at Station ID: [id number]. Oscar Dill M.D. slc/:11/08/2023 16:45:06 BI-RADS CATEGORY: () - Unspecified - other recall n/a LATERALITY: (B)
--- NOTE | 2023-11-11 08:07 | Mammography Report ---
MAMMOGRAPHY GUIDED WIRE LOCALIZATION LEFT BREAST- POST-PROCEDURE IMAGING FOR MARKER PLACEMENT: 024 CLINICAL: Left breast wire localization. Correlation is made to exams dated: 10/25/2023 ultrasound biopsy, 10/25/2023 mammogram, 09/16/2023 mammogr am, 09/09/2023 mammogram, and 08/17/2023 mammogram - [facility]. A wire localization using mammography guidance was performed for the marker clip located in the left breast at 12 o'clock anterior depth. The skin was prepped in the usual manner. A wire was inserted into the targeted area under mammography guidance. IMPRESSION: WIRE LOCALIZATION Wire localization for the marker clip in the left breast at 12 o'clock anterior depth was successful. Future imaging is recommended as follows: 04/25/2024 left mammogram and an ultrasound. This exam was interpreted at Station ID: [id number]. Osman Tapia M.D. crm/:11/10/2023 14:52:29 BI-RADS CATEGORY: () - Unspecified - other recall n/a LATERALITY: (B)
== END 2023-11-07 06:54 | disposition home or self-care (01) ==
LOC: DI 06:53
PROVIDERS: ATTEND Surgery
PROC: 0HBU0ZZ Excision of Left Breast, Open Approach (ICD-10-PCS; principal; 2023-11-07 10:00)
DX: C50.912 Malignant neoplasm of unspecified site of left female breast (principal); Z17.1 Estrogen receptor negative status [ER-]; I10 Essential (primary) hypertension; E11.9 Type 2 diabetes mellitus without complications; E66.9 Obesity, unspecified; Z68.35 Body mass index [BMI] 35.0-35.9, adult; Z79.84 Long term (current) use of oral hypoglycemic drugs

== ENCOUNTER 2023-11-16 12:37 | Outpatient (CLI) | payer MEDICARE ==
[2023-11-16 17:59] LABS: ALBUMIN/GLOBULIN RATIO 1.4 (1.0-2.2); ALKALINE PHOSPHATASE 89 IU/L (42-121); ALT ALANINE AMINOTRANSFERASE 51 IU/L (10-60); AST ASPARTATE AMINOTRANSFERASE 34 IU/L (10-42); BILIRUBIN,TOTAL 0.5 mg/dL (0.2-1.0); BUN - BLOOD UREA NITROGEN 17 mg/dL (6-20); CALCIUM 9.9 mg/dL (8.5-10.3); CARBON DIOXIDE - CO2 22 mmol/L (21-32); CHLORIDE 109 mmol/L (101-111); CHOL/HDL RATIO 2.8 (<4.4); CHOLESTEROL 178 mg/dL; CREATININE 0.8 mg/dL (0.6-1.3); GFR - MDRD 70 (>89); GLUCOSE 96 mg/dL (74-104); HDL CHOLESTEROL 63 mg/dL; LDL CHOLESTEROL,CALCULATED 84 mg/dL; LDL/HDL RATIO 1.3 (<4.4); POTASSIUM 4.1 mmol/L (3.5-4.5); SODIUM 138 mmol/L (135-145); TOTAL PROTEIN 6.8 g/dL (6.4-8.9); TRIGLYCERIDES 155 mg/dL (48-352); VLDL CHOLESTEROL 31 mg/dL
[2023-11-16 20:51] LABS: ESTIMATED AVERAGE GLUCOSE 160 mg/dL (70-100); HEMOGLOBIN A1c% 7.2 % (4.27-6.07)
== END 2023-11-16 12:38 | disposition home or self-care (01) ==
LOC: LAB.N 12:37
PROVIDERS: ATTEND Physician Assistant Medical
DX: E03.9 Hypothyroidism, unspecified (principal); E11.9 Type 2 diabetes mellitus without complications; E78.5 Hyperlipidemia, unspecified
CPT/HCPCS: 36415; 80053; 80061; 83036; 83721; 84439; 84443; 84481

== ENCOUNTER 2024-03-01 14:09 | Outpatient (CLI) | payer MEDICARE ==
--- NOTE | 2024-03-02 15:21 | XRAY Report ---
PROCEDURE: Chest 2V INDICATIONS: COUGH TECHNIQUE: 2 views of the chest were acquired. COMPARISON: None. FINDINGS: Surgical changes and devices: None. Lungs and pleura: No pleural effusions or pneumothorax. Lungs are clear. Mediastinum: Mediastinal contours appear normal. Heart size is normal. Bones and chest wall: No suspicious bony lesions. Overlying soft tissues appear unremarkable. IMPRESSION: No acute cardiopulmonary process. Reviewed by: Yari Cade MD on 03/02/2024 3:19 PM PDT Approved by: Yari Cade MD on 03/02/2024 3:19 PM PDT Station ID: [id number]
== END 2024-03-01 23:59 | disposition home or self-care (01) ==
LOC: DI.N 14:09
PROVIDERS: ATTEND Physician Assistant
DX: R05.9 Cough, unspecified (principal)

== ENCOUNTER 2024-03-12 08:57 | Outpatient (CLI) | payer MEDICARE ==
[2024-03-12 13:29] LABS: ALBUMIN 4.1 g/dL (3.2-5.5); ALBUMIN/GLOBULIN RATIO 1.4 (1.0-2.2); BILIRUBIN,TOTAL 0.4 mg/dL (0.2-1.0); CALCIUM 10.2 mg/dL (8.5-10.3); POTASSIUM 4.2 mmol/L (3.5-4.5)
[2024-03-12 14:20] LABS: ESTIMATED AVERAGE GLUCOSE 114 mg/dL (70-100); HEMOGLOBIN A1c% 5.6 % (4.27-6.07)
== END 2024-03-12 08:58 | disposition home or self-care (01) ==
LOC: LAB.N 08:57
PROVIDERS: ATTEND Physician Assistant Medical
DX: E11.9 Type 2 diabetes mellitus without complications (principal)
CPT/HCPCS: 36415; 80053; 83036